=== PATIENT | female | born 1990 | race Caucasian/White ===

== ENCOUNTER 2018-12-14 23:07 | Emergency (ER) | payer MEDICAID ==
[2018-12-14] MEDS ORDERED: Sodium Chloride 0.9% 10 ML Syringe FLUSH PRN (23:42)
[2018-12-14] MEDS ORDERED: LORazepam 2 MG/ML SDV IVPUSH ONE (23:43)
[2018-12-14] MEDS ORDERED: Prochlorperazine 5 MG in Sodium Chloride 0.9% 50 ML IV ONE (23:43)
[2018-12-14] MEDS ORDERED: Sodium Chloride 0.9% 500 ML IV ONE (23:43)
[2018-12-14] MEDS ORDERED: diphenhydrAMINE 50 MG/ML SDV IVPUSH ONE (23:44)
--- NOTE | 2018-12-14 23:47 | EDM.PDOC ---
ED HPI GENERAL MEDICAL PROBLEM - General Stated Complaint: MIGRAINE Time Seen by Provider: 12/14/18 23:25 Source of Information: Reports: Patient History Limitations: Reports: No Limitations - History of Present Illness INITIAL COMMENTS - FREE TEXT/NARRATIVE: 28-year-old female with history of type 1 diabetes mellitus, end-stage renal disease on hemodialysis and migraine headaches who reports she awoke this morning at 8:30 AM with a headache that was left-sided and radiated to back of her head. She initially told me that the headache was a "migraine" but she also tells me that it is not like her normal migraines. She states her normal migraines are usually occipital and she has never woken up with a headache. This headache is more severe than her migraine headaches. She rates the pain as a 9-10/10. She reports that it is sharp and throbbing. She does have photophobia and phonophobia. She has had nausea but no vomiting. She has had no fevers or chills. She has been able to drink liquids. She has had no vision problems. There is no arm or leg weakness. There is no localized area of numbness. There are no other associated signs or symptoms. There are no other modifying factors. Onset: Today (8:30 AM) Duration: Getting Worse (Through the day) Location: Reports: Head Quality: Reports: Sharp, Throbbing Severity: Moderate (to clear) Improves with: Reports: None Worsens with: Reports: Other (Light, sound.) Context: Reports: Other (Awoke with headache) Associated Symptoms: Reports: Headaches, Nausea/Vomiting Treatments ATTIC BLOWER: Reports: NSAIDS, Other Medication(s) (Excedrin Migraine) head Pain Score (Numeric/FACES): 10 - Related Data Allergies Allergy/AdvReac Type Severity Reaction Status Date / Time amoxicillin Allergy Cannot Verified 12/14/18 23:41 Remember fentanyl Allergy Cannot Verified 12/14/18 23:41 Remember ketorolac [From Toradol] Allergy Cannot Verified 12/14/18 23:41 Remember metoclopramide [From Reglan] Allergy Cannot Verified 12/14/18 23:41 Remember Penicillins Allergy Cannot Verified 12/14/18 23:41 Remember tramadol Allergy Cannot Verified 12/14/18 23:41 Remember vancomycin Allergy Cannot Verified 12/14/18 23:41 Remember Past Medical History Cardiovascular History: Reports: Hypertension Genitourinary History: Reports: Dialysis (End-stage renal disease; dialyzes on Tuesday and Tuesday.) Neurological History: Reports: Migraines Endocrine/Metabolic History: Reports: Diabetes, Type I - Past Surgical History HEENT Surgical History: Reports: Myringotomy w Tube(s) (On right ear) GI Surgical History: Reports: Appendectomy, Cholecystectomy Female Surgical History: Reports: Section, Hysterectomy Musculoskeletal Surgical History: Reports: ORIF (Left forearm) Other Surgical History Comment: 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 Removal of fistula from right arm. Social & Family History - Tobacco Use Smoking Status *Q: Current Every Day Smoker - Recreational Drug Use Recreational Drug Use: No - Living Situation & Occupation Living situation: Reports: ED ROS GENERAL - Review of Systems Review Of Systems: See Below Constitutional: Reports: No Symptoms HEENT: Reports: No Symptoms Respiratory: Reports: No Symptoms Cardiovascular: Reports: No Symptoms GI/Abdominal: Reports: Nausea Musculoskeletal: Reports: No Symptoms Skin: Reports: No Symptoms Neurological: Reports: Headache Hematologic/Lymphatic: Reports: No Symptoms Immunologic: Reports: No Symptoms - Physical Exam Exam: See Below Exam Limited By: No Limitations General Appearance: Alert, WD/WN, Mild Distress, Other (She is sitting up, awake , alert and appropriate. She appears nontoxic.) Eye Exam: Bilateral Eye: EOMI, Normal Inspection, PERRL Ears: Normal External Exam Nose: Normal Inspection, Normal Mucosa, No Blood Throat/Mouth: Normal Voice, No Airway Compromise, Other (Dry mucous membranes) Head Exam: Atraumatic, Normocephalic Neck: Normal Inspection, Supple, Non-Tender, Full Range of Motion, Other (No meningismus) Respiratory/Chest: No Respiratory Distress, Lungs Clear, Normal Breath Sounds, No Accessory Muscle Use, Chest Non-Tender Cardiovascular: Normal Peripheral Pulses, Regular Rate, Rhythm, No JVD GI/Abdominal: Normal Bowel Sounds, Soft, Non-Tender, No Mass Neuro Exam (Abbreviated): Alert, Oriented, CN II-XII Intact, Normal Cognition, Normal Gait, No Motor/Sensory Deficits Back Exam: Normal Inspection Extremities: Normal Inspection, Normal Range of Motion, Non-Tender, No Pedal Edema, Normal Capillary Refill Psychiatric: Normal Affect Skin Exam: Warm, Dry, Intact, Normal Color, No Rash Course - Vital Signs Last Recorded V/S: Last Vital Signs Temp 36.9 C 12/14/18 23:07 Pulse 97 12/14/18 23:07 Resp 18 12/14/18 23:07 BP 161/98 H 12/14/18 23:07 Pulse Ox 100 12/14/18 23:07 - Orders/Labs/Meds Orders: Active Orders 24 hr Category Date Time Status Head wo Cont [CT] Stat Exams 12/14/18 23:42 Ordered Sodium Chloride 0.9% [Saline Flush] Med 12/14/18 23:42 Active 10 ml FLUSH ASDIRECTED PRN Peripheral IV Insertion Adult [OM.PC] Routine Oth 12/14/18 23:42 Ordered Medication Orders Sodium Chloride (Saline Flush) 10 ml FLUSH ASDIRECTED PRN PRN Reason: Keep Vein Open Last Admin: 12/15/18 00:27 Dose: 10 ml Labs: Laboratory Tests 12/15/18 12/15/18 12/15/18 Range/Units 02:25 02:25 02:25 WBC 9.3 (4.5-12.0) X10-3/uL RBC 3.70 (3.23-5.20) x10(6)uL Hgb 11.2 L (11.5-15.5) g/dL Hct 34.3 (30.0-51.3) % MCV 92.7 (80-96) fL MCH 30.2 (27.7-33.6) pg MCHC 32.6 (32.2-35.4) g/dL RDW 14.2 (11.5-15.5) % Plt Count 310 (125-369) X10(3)uL MPV 9.6 (7.4-10.4) fL Neut % (Auto) 58.3 (46-82) % Lymph % (Auto) 28.9 (13-37) % [place] % (Auto) 7.3 (4-12) % Eos % (Auto) 4 (1.0-5.0) % Baso % (Auto) 2 (0-2) % Neut # (Auto) 5.4 (1.6-8.3) # Lymph # (Auto) 2.7 (0.6-5.0) # [place] # (Auto) 0.7 (0.0-1.3) # Eos # (Auto) 0.4 (0.0-0.8) # Baso # (Auto) 0.1 (0.0-0.2) # ESR 1 (0-20) mm/hr Sodium 138 (135-145) mmol/L Potassium 5.3 (3.5-5.3) mmol/L Chloride 103 (100-110) mmol/L Carbon Dioxide 26 (21-32) mmol/L BUN 28 H (7-18) mg/dL Creatinine 4.8 H* (0.55-1.02) mg/dL Est Cr Clr Drug Dosing TNP Estimated GFR (MDRD) 11 L (>60) BUN/Creatinine Ratio 5.8 L (9-20) Glucose 192 H (80-116) mg/dL Calcium 8.6 (8.6-10.2) mg/dL Meds: Medications Generic Name Dose Route Start Last Admin Trade Name Freq PRN Reason Stop Dose Admin Sodium Chloride 10 ml 12/14/18 23:42 12/15/18 00:27 Saline Flush FLUSH 10 ml ASDIRECTED PRN Administration Keep Vein Open Discontinued Medications Generic Name Dose Route Start Last Admin Trade Name Freq PRN Reason Stop Dose Admin Diphenhydramine HCl 25 mg 12/14/18 23:44 12/15/18 00:24 Benadryl IVPUSH 12/14/18 23:45 25 mg ONETIME ONE Administration Haloperidol Lactate 2.5 mg 12/15/18 01:19 12/15/18 01:23 Haldol IV 12/15/18 01:20 2.5 mg ONETIME ONE Administration Prochlorperazine Edisylate 5 51 mls @ 150 mls/hr 12/14/18 23:43 12/15/18 00: 25 mg/ Sodium Chloride IV 12/15/18 00:03 150 mls/hr ONETIME ONE Administration Sodium Chloride 500 mls @ 999 mls/hr 12/14/18 23:43 12/15/18 00:27 Normal Saline IV 12/15/18 00:13 999 mls/hr .BOLUS ONE Administration Lorazepam 1 mg 12/14/18 23:43 12/15/18 00:23 Ativan IVPUSH 12/14/18 23:44 1 mg ONETIME ONE Administration - Re-Assessments/Exams Free Text/Narrative Re-Assessment/Exam: 12/15/18 01:20: Patient was sleeping. However, when awakened she reports that her headache is no better. I will give the patient Haldol 2.[address] scan of patient's head has been performed and await results. 12/15/18 04:03: Lab tests are reassuring. She does have an elevated creatinine but this is expected given her end-stage renal failure. Her sedimentation rate was normal. The CT scan of her head was normal as well. The patient was sleeping peacefully when I came to reevaluate her. When awakened she reports she still has a headache but it is improved and she reported that it was an 8/ 10 but she appeared to be quite a bit more comfortable than this. Her blood pressures have been elevated while she has been here but they are in a range where she states that she has been for some time. In any event, I feel that she is stable for discharge.. She should keep her appointment for her dialysis today. She is to follow-up with her primary doctor in regard to her headaches. Her headache appears to be a variant of her migraines. Departure - Departure Time of Disposition: 04:10 Disposition: Home, Self-Care 01 Condition: Good (Improved) Clinical Impression: Headache syndrome, Hypertension, uncontrolled, End stage renal disease - Discharge Information Instructions: Hypertension, [id number], Recurrent Migraine Headache, Easy-to- Read Referrals: Baldev Nina PA-C [Primary Care Provider] - Additional Instructions: Your blood tests were either normal or unchanged from previous. There is no evidence of acute inflammation. CT scan of your head was normal. I am unsure of the cause of her headache but I suspect this may just be a variant of your migraines. You should rest. You should drink plenty of fluids. Keep your appointment for your dialysis today. Follow-up with your primary doctor in regard to your headaches. Back to the emergency department for fever, unrelenting vomiting, increasing headache or any other concerning sign or symptom. - My Orders Last 24 Hours: My Active Orders 12/14/18 23:42 Head wo Cont [CT] Stat Sodium Chloride 0.9% [Saline Flush] 10 ml FLUSH ASDIRECTED PRN Peripheral IV Insertion Adult [OM.PC] Routine - Assessment/Plan Last 24 Hours: My Active Orders 12/14/18 23:42 Head wo Cont [CT] Stat Sodium Chloride 0.9% [Saline Flush] 10 ml FLUSH ASDIRECTED PRN Peripheral IV Insertion Adult [OM.PC] Routine
[2018-12-15] MEDS ORDERED: Haloperidol Lactate 5 MG/ML SDV IV ONE (01:19)
== END 2018-12-15 04:15 | disposition home or self-care (01) ==
LOC: FB.ED 23:07
DX: G44.89 Other headache syndrome (principal); I12.0 Hypertensive chronic kidney disease with stage 5 chronic kidney disease or end stage renal disease; N18.6 End stage renal disease; E10.22 Type 1 diabetes mellitus with diabetic chronic kidney disease; F17.200 Nicotine dependence, unspecified, uncomplicated; Z96.22 Myringotomy tube(s) status; Z90.49 Acquired absence of other specified parts of digestive tract; Z90.710 Acquired absence of both cervix and uterus; Z88.0 Allergy status to penicillin; Z88.1 Allergy status to other antibiotic agents; Z88.5 Allergy status to narcotic agent; Z88.6 Allergy status to analgesic agent; Z88.8 Allergy status to other drugs, medicaments and biological substances; Z99.2 Dependence on renal dialysis
CPT/HCPCS: 36415; 70450; 80048; 85025; 85651; 96365; 96375; 99284; J0780; J1200; J1630; J2060; J7040; J7050

== ENCOUNTER 2018-12-16 21:18 | Emergency (ER) | payer MEDICAID ==
[2018-12-16] MEDS ORDERED: LORazepam 2 MG/ML SDV IVPUSH ONE ×2 (21:47→22:41)
[2018-12-16] MEDS ORDERED: diphenhydrAMINE 50 MG/ML SDV IVPUSH ONE (21:47)
[2018-12-16] MEDS ORDERED: Haloperidol Lactate 5 MG/ML SDV IV ONE (21:47)
--- NOTE | 2018-12-16 21:47 | EDM.PDOC ---
ED HPI GENERAL MEDICAL PROBLEM - General Chief Complaint: Headache Stated Complaint: MIGRAINE Time Seen by Provider: 12/16/18 21:30 Source of Information: Reports: Patient History Limitations: Reports: No Limitations - History of Present Illness INITIAL COMMENTS - FREE TEXT/NARRATIVE: 28-year-old female who was seen by myself on 12/14/2018 for headache. She does have a history of migraine headaches but the headache 12/14/2018 was somewhat different than her previous migraines and that she awoke with this headache and it was frontally located and her migraines tend to be occipitally located and she is never woken up with a migraine. He had a workup which included blood testing which was all negative and reassuring. She had a CT scan of her head which showed no acute abnormality. Her exam was reassuring as well in that she had no meningismus and no fever. She was given accommodation of medications and some IV fluids and her headache markedly improved and she was discharged. She reports that her headache went away and she was feeling well until approximately 3:30 to 4 this morning when she developed a recurrence in her headache as she was driving home from work. The headache again is frontally located and radiates back to her occiput. It is a throbbing and pounding headache that is associated with nausea and some photophobia. She has had vomiting 2. And she has noted that she has some swelling in her ankles and around her abdomen. There is no pain in these areas. She has had no fevers. She has had no neck stiffness. She has not been able to sleep since the headache began this morning. She has taken Excedrin and she called her doctor and he told her that it was okay to take Aleve. She has had no relief of her symptoms with these medications. Her pain is a 10/10 now. There are no other associated signs or symptoms. There are no other modifying factors. 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: Other Medication(s) (Excedrin and Aleve) - Related Data Allergies Allergy/AdvReac Type Severity Reaction Status Date / Time amoxicillin Allergy Cannot Verified 12/14/18 23:41 Remember fentanyl Allergy Cannot Verified 12/14/18 23:41 Remember ketorolac [From Toradol] Allergy Cannot Verified 12/14/18 23:41 Remember metoclopramide [From Reglan] Allergy Cannot Verified 12/14/18 23:41 Remember Penicillins Allergy Cannot Verified 12/14/18 23:41 Remember tramadol Allergy Cannot Verified 12/14/18 23:41 Remember vancomycin Allergy Cannot Verified 12/14/18 23:41 Remember Past Medical History Cardiovascular History: Reports: Heart Murmur, Hypertension Genitourinary History: Reports: Dialysis Neurological History: Reports: Migraines Endocrine/Metabolic History: Reports: Diabetes, Type I - Past Surgical History HEENT Surgical History: Reports: Myringotomy w Tube(s) GI Surgical History: Reports: Appendectomy, Cholecystectomy Female Surgical History: Reports: Section, Hysterectomy Musculoskeletal Surgical History: Reports: ORIF Social & Family History - Tobacco Use Smoking Status *Q: Current Every Day Smoker - Living Situation & Occupation Living situation: Reports: 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) ED ROS GENERAL - Review of Systems Review Of Systems: See Below Constitutional: Reports: No Symptoms HEENT: Reports: No Symptoms Respiratory: Reports: No Symptoms Cardiovascular: Reports: No Symptoms GI/Abdominal: Reports: Nausea, Vomiting : Reports: No Symptoms Musculoskeletal: Reports: Other (Edema in ankles and in abdominal wall.) Skin: Reports: No Symptoms Neurological: Reports: Headache Hematologic/Lymphatic: Reports: No Symptoms Immunologic: Reports: No Symptoms - Physical Exam Exam: See Below Exam Limited By: No Limitations General Appearance: Alert, WD/WN, Moderate Distress (However, patient is awake, alert and appropriate and appears nontoxic at this point) Eye Exam: Bilateral Eye: EOMI, Normal Inspection, PERRL Ears: Normal External Exam Nose: Normal Inspection, Normal Mucosa, No Blood Throat/Mouth: Normal Inspection, Normal Oropharynx, Normal Voice, No Airway Compromise Head Exam: Atraumatic, Normocephalic Neck: Normal Inspection, Supple, Non-Tender, Full Range of Motion Respiratory/Chest: No Respiratory Distress, Lungs Clear, Normal Breath Sounds, No Accessory Muscle Use, Chest Non-Tender Cardiovascular: Normal Peripheral Pulses, Regular Rate, Rhythm, No JVD GI/Abdominal: Normal Bowel Sounds, Soft, Non-Tender, No Mass Neuro Exam (Abbreviated): Alert, Oriented, CN II-XII Intact, Normal Cognition, No Motor/Sensory Deficits Back Exam: Normal Inspection Extremities: Normal Inspection, Normal Range of Motion, Non-Tender, Normal Capillary Refill Skin Exam: Warm, Dry, Intact, Normal Color, No Rash Course - Vital Signs Last Recorded V/S: Last Vital Signs Temp 36.7 C 12/16/18 23:20 Pulse 112 H 12/16/18 23:20 Resp 16 12/16/18 23:20 BP 180/109 H 12/16/18 23:20 Pulse Ox 100 12/16/18 23:20 - Orders/Labs/Meds Orders: Active Orders 24 hr Category Date Time Status Accu Check [Blood Glucose Check, Bedside] [] ONETIME Care 12/16/18 22:53 Active Accu Check [Blood Glucose Check, Bedside] [] ONETIME Care 12/16/18 23:15 Active Blood Glucose Check, Bedside [] ONETIME Care 12/16/18 23:07 Active Sodium Chloride 0.9% [Saline Flush] Med 12/16/18 21:47 Active 10 ml FLUSH ASDIRECTED PRN Peripheral IV Insertion Adult [OM.PC] Routine Oth 12/16/18 21:47 Ordered Medication Orders Sodium Chloride (Saline Flush) 10 ml FLUSH ASDIRECTED PRN PRN Reason: Keep Vein Open Last Admin: 12/16/18 22:25 Dose: 10 ml Admin: 12/16/18 22:16 Dose: 10 ml Admin: 12/16/18 22:13 Dose: 10 ml Labs: Laboratory Tests 12/16/18 12/16/18 Range/Units 22:53 23:05 Glucose 213 H (80-116) mg/dL POC Glucose 35 L* (80-116) mg/dL Meds: Medications Generic Name Dose Route Start Last Admin Trade Name Freq PRN Reason Stop Dose Admin Sodium Chloride 10 ml 12/16/18 21:47 12/16/18 22:25 Saline Flush FLUSH 10 ml ASDIRECTED PRN Administration Keep Vein Open Discontinued Medications Generic Name Dose Route Start Last Admin Trade Name Freq PRN Reason Stop Dose Admin Dextrose/Water 50 ml 12/16/18 22:54 12/16/18 22:55 Dextrose 50% In Water IVPUSH 12/16/18 22:55 50 ml ONETIME ONE Administration Diphenhydramine HCl 50 mg 12/16/18 21:47 12/16/18 22:25 Benadryl IVPUSH 12/16/18 21:48 50 mg ONETIME ONE Administration Haloperidol Lactate 5 mg 12/16/18 21:47 12/16/18 22:16 Haldol IV 12/16/18 21:48 5 mg ONETIME ONE Administration Lorazepam 1 mg 12/16/18 21:47 12/16/18 22:13 Ativan IVPUSH 12/16/18 21:48 1 mg ONETIME ONE Administration Lorazepam 1 mg 12/16/18 22:41 12/16/18 22:45 Ativan IVPUSH 12/16/18 22:42 1 mg ONETIME ONE Administration - Re-Assessments/Exams Free Text/Narrative Re-Assessment/Exam: 12/16/18 22:30: Patient's headache is somewhat improved. She reports is down to a 7/10. She has however feeling somewhat more anxious and like something is crawling under her skin. This may well be an akathetic response to the increased dose of Benadryl (I had only given her 25 mg the last time that she was here). I will give her additional Ativan IV. 12/16/18 22:55: The patient had reported that she felt like her blood sugar was a little low. And when we checked her blood sugar was 35. She was given 1 amp of D50 IV and was given toast with jelly to eat. She was awake and alert with this. 12/16/18 23:25: Patient's repeat blood sugar was 159. She reports her headache is down to a 5/10. She is still somewhat slow's but reports that seems to be improving as well. She is ready for discharge and was discharge. I have asked them to check her blood sugar every hour for the next 2-3 hours to ensure that it is stable or rising and she should eat a sugar rich snack when she gets home. Departure - Departure Time of Disposition: 23:25 Disposition: Home, Self-Care 01 Condition: Good (Improved) Clinical Impression: Hypoglycemic episode in patient with diabetes mellitus, Acute medication- induced akathisia Migraine headache Qualifiers: Migraine type: unspecified Status migrainosus presence: without status migrainosus Intractability: not intractable Qualified Code(s): G43.909 - Migraine, unspecified, not intractable, without status migrainosus - Discharge Information Referrals: PCP,None [Primary Care Provider] - Forms: ED Department Discharge Additional Instructions: Increase your fluid intake judiciously. Check your blood sugar every 1 hour 2- 3 hours to ensure that your blood sugars stable or doing somewhat. Eat a good snack when you get home with sugar or sugar containing food. Follow-up with your primary doctor on Tuesday. Back to the emergency department for fever, unrelenting vomiting or any other concerning sign or symptom. - My Orders Last 24 Hours: My Active Orders 12/16/18 21:47 Sodium Chloride 0.9% [Saline Flush] 10 ml FLUSH ASDIRECTED PRN Peripheral IV Insertion Adult [OM.PC] Routine 12/16/18 22:53 Accu Check [Blood Glucose Check, Bedside] [RC] ONETIME 12/16/18 23:07 Blood Glucose Check, Bedside [RC] ONETIME 12/16/18 23:15 Accu Check [Blood Glucose Check, Bedside] [RC] ONETIME - Assessment/Plan Last 24 Hours: My Active Orders 12/16/18 21:47 Sodium Chloride 0.9% [Saline Flush] 10 ml FLUSH ASDIRECTED PRN Peripheral IV Insertion Adult [OM.PC] Routine 12/16/18 22:53 Accu Check [Blood Glucose Check, Bedside] [RC] ONETIME 12/16/18 23:07 Blood Glucose Check, Bedside [RC] ONETIME 12/16/18 23:15 Accu Check [Blood Glucose Check, Bedside] [RC] ONETIME
[2018-12-16] MEDS: Sodium Chloride 0.9% 10 ML Syringe FLUSH PRN ×5 (22:13→22:55)
[2018-12-16] MEDS ORDERED: 50% Dextrose in Water 50 ML Syringe IVPUSH ONE (22:54)
== END 2018-12-16 23:30 | disposition home or self-care (01) ==
LOC: FB.ED 21:18
DX: G43.909 Migraine, unspecified, not intractable, without status migrainosus (principal); G25.71 Drug induced akathisia; E10.649 Type 1 diabetes mellitus with hypoglycemia without coma; F17.200 Nicotine dependence, unspecified, uncomplicated; Z88.1 Allergy status to other antibiotic agents; Z88.0 Allergy status to penicillin; Z88.5 Allergy status to narcotic agent; Z88.8 Allergy status to other drugs, medicaments and biological substances; Z90.49 Acquired absence of other specified parts of digestive tract; Z90.710 Acquired absence of both cervix and uterus
CPT/HCPCS: 36415; 82947; 82962; 96374; 96375; 96376; 99284; A4216; J1200; J1630; J2060

== ENCOUNTER 2018-12-22 21:27 | Emergency (ER) | payer MEDICAID ==
[2018-12-22] MEDS ORDERED: LORazepam 2 MG/ML SDV IVPUSH ONE (23:12)
[2018-12-22] MEDS ORDERED: diphenhydrAMINE 50 MG/ML SDV IVPUSH ONE (23:12)
--- NOTE | 2018-12-22 23:14 | EDM.PDOC ---
ED HPI GENERAL MEDICAL PROBLEM - General Chief Complaint: Headache Stated Complaint: MIGRAINE Time Seen by Provider: 12/22/18 23:15 Source of Information: Reports: Patient History Limitations: Reports: No Limitations - History of Present Illness INITIAL COMMENTS - FREE TEXT/NARRATIVE: patient presents with concern for migraine headache which has been going on since yesterday afternoon. She has had trouble with migraines for a long time, but seemed to worsen she started dialysis. He tried taking Excedrin Migraine at home, lying down for a nap and also having some caffeine. None of these seemed to help. Has had mild nausea, vomited once yesterday morning but none today. Migraines are like her typical migraines, across the front of her head and was slight blurred vision in her right eye. No overall numbness, weakness or tingling and no change in her gait. She denies any fever, chills or sweats and no neck pain or difficulty moving her neck. No ringing in her ears. She is blind in her left eye, and has decreased vision on the right. Past medical history significant for diabetes type 1 since , complicated by end-stage renal disease on dialysis as of September of this year. She reports her last A1c to be 9, and she dialyzes on Tuesday and Tuesday but did not dialyze today because of an emergency at the facility. She will go to dialysis tomorrow morning. Her headaches are often worse after dialysis. She is not on any controller medications at this time. Bilateral Frontal Headache Pain Score (Numeric/FACES): 9 - Related Data Allergies Allergy/AdvReac Type Severity Reaction Status Date / Time amoxicillin Allergy Cannot Verified 12/16/18 23:51 Remember azithromycin Allergy Cannot Verified 12/16/18 23:51 Remember fentanyl Allergy Cannot Verified 12/16/18 23:51 Remember ketorolac [From Toradol] Allergy Cannot Verified 12/16/18 23:51 Remember latex Allergy Cannot Verified 12/16/18 23:51 Remember metoclopramide [From Reglan] Allergy Cannot Verified 12/16/18 23:51 Remember Penicillins Allergy Cannot Verified 12/16/18 23:51 Remember Sulfa (Sulfonamide Allergy Cannot Verified 12/16/18 23:51 Antibiotics) Remember tramadol Allergy Cannot Verified 12/16/18 23:51 Remember vancomycin Allergy Cannot Verified 12/16/18 23:51 Remember Home Meds: Home Meds .Bp Pills X2 1 dose PO DAILY 12/16/18 [History] Insulin Aspart [NovoLOG] 1 dose SQ ASDIRECTED 12/16/18 [History] Insulin Glarg,Human.Rec.Analog [Lantus Solostar] 1 dose SQ ASDIRECTED 12/16/18 [ History] Past Medical History HEENT History: Reports: None Cardiovascular History: Reports: Heart Murmur, Hypertension Gastrointestinal History: Reports: None Genitourinary History: Reports: Dialysis HOSPICE/HOME HEALTH AIDE History: Reports: : 3 Para: 3 Other HOSPICE/HOME HEALTH AIDE History: Neurological History: Reports: Migraines Endocrine/Metabolic History: Reports: Diabetes, Type I - Past Surgical History HEENT Surgical History: Reports: Myringotomy w Tube(s) Cardiovascular Surgical History: Reports: None GI Surgical History: Reports: Appendectomy, Cholecystectomy Female Surgical History: Reports: Section, Hysterectomy Musculoskeletal Surgical History: Reports: ORIF Social & Family History - Family History Family Medical History: Noncontributory - Tobacco Use Smoking Status *Q: Current Every Day Smoker Years of Tobacco use: 9 Packs/Tins Daily: 0.5 Used Tobacco, but Quit: No Second Hand Smoke Exposure: No - Caffeine Use Caffeine Use: Reports: None - Alcohol Use Alcohol Use History: No - Recreational Drug Use Recreational Drug Use: No - Living Situation & Occupation Living situation: Reports: 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 ED EXAM, GENERAL - Physical Exam Exam: See Below Free Text/Narrative:: general: Alert, pleasant and is not here to be any acute distress. Pupils are equal and reactive, facial muscles are symmetric and uvula is midline. She has equal strength in the upper and lower extremities bilaterally and no gross sensation all deficits. Gait is normal. Neck is supple and freely movable without any pain or tenderness. Heart is regular rate and rhythm, lungs are clear throughout with no wheezes or crackles. Abdomen soft nontender. Peripheral pulses +2 and she has no lower extremity edema. No obvious skin wounds or lesions Course - Vital Signs Text/Narrative:: migraine headaches consistent with prior presentations for her, no neural deficits. She states that the cocktail she was given the very first time she was in the emergency room worked well, not so much the second time. She is currently awaiting a referral to [facility] for nephrology consult down there. reviewed notes, previous migraine cocktail included IV Ativan 1 mg, Benadryl 25 mg, Compazine, and Haldol 2.8. The second time she was seen here she was given double dose of these medications and had some bad side effects from it. Given her chills and sweats over the last couple of days. Get labs to rule out other infection in a major electrolyte abnormalities because her dialysis Pushed back 1 day. She is hypertensive but I would expect this given that she is on daily on dialysis and reports to be in some pain from her headache. Last Recorded V/S: Last Vital Signs Temp 36.9 C 12/23/18 00:07 Pulse 92 12/23/18 00:07 Resp 16 12/23/18 00:07 BP 174/113 H 12/23/18 00:07 Pulse Ox 98 12/23/18 00:07 - Orders/Labs/Meds Orders: Active Orders 24 hr Category Date Time Status Sodium Chloride 0.9% [Saline Flush] Med 12/22/18 23:20 Active 10 ml FLUSH ASDIRECTED PRN Medication Orders Sodium Chloride (Saline Flush) 10 ml FLUSH ASDIRECTED PRN PRN Reason: IV Use Last Admin: 12/23/18 00:01 Dose: 10 ml Admin: 12/22/18 23:25 Dose: 10 ml Labs: Laboratory Tests 12/22/18 12/22/18 12/22/18 Range/Units 22:38 22:38 22:38 WBC 11.1 (4.5-12.0) X10-3/uL RBC 4.08 (3.23-5.20) x10(6)uL Hgb 12.5 (11.5-15.5) g/dL Hct 37.5 (30.0-51.3) % MCV 91.9 (80-96) fL MCH 30.5 (27.7-33.6) pg MCHC 33.2 (32.2-35.4) g/dL RDW 14.7 (11.5-15.5) % Plt Count 342 (125-369) X10(3)uL MPV 8.9 (7.4-10.4) fL Neut % (Auto) 68.5 (46-82) % Lymph % (Auto) 20.8 (13-37) % Harrison % (Auto) 6.7 (4-12) % Eos % (Auto) 4 (1.0-5.0) % Baso % (Auto) 1 (0-2) % Neut # (Auto) 7.6 (1.6-8.3) # Lymph # (Auto) 2.3 (0.6-5.0) # Harrison # (Auto) 0.7 (0.0-1.3) # Eos # (Auto) 0.4 (0.0-0.8) # Baso # (Auto) 0.1 (0.0-0.2) # Sodium 142 (135-145) mmol/L Potassium 4.1 D (3.5-5.3) mmol/L Chloride 104 (100-110) mmol/L Carbon Dioxide 24 (21-32) mmol/L BUN 55 H D (7-18) mg/dL Creatinine 6.4 H* (0.55-1.02) mg/dL Est Cr Clr Drug Dosing 9.54 mL/min Estimated GFR (MDRD) 8 L (>60) BUN/Creatinine Ratio 8.6 L (9-20) Glucose 168 H (80-116) mg/dL Calcium 9.1 (8.6-10.2) mg/dL C-Reactive Protein 0.5 (0.5-0.9) mg/dL Meds: Medications Generic Name Dose Route Start Last Admin Trade Name Freq PRN Reason Stop Dose Admin Sodium Chloride 10 ml 12/22/18 23:20 12/23/18 00:01 Saline Flush FLUSH 10 ml ASDIRECTED PRN Administration IV Use Discontinued Medications Generic Name Dose Route Start Last Admin Trade Name Freq PRN Reason Stop Dose Admin Diphenhydramine HCl 25 mg 12/22/18 23:12 12/22/18 23:31 Benadryl IVPUSH 12/22/18 23:13 25 mg ONETIME ONE Administration Prochlorperazine Edisylate 5 51 mls @ 150 mls/hr 12/22/18 23:15 12/22/18 23: 32 mg/ Sodium Chloride IV 12/22/18 23:35 150 mls/hr ONETIME ONE Administration Lorazepam 0.5 mg 12/22/18 23:12 12/22/18 23:31 Ativan IVPUSH 12/22/18 23:13 0.5 mg ONETIME ONE Administration - Re-Assessments/Exams Free Text/Narrative Re-Assessment/Exam: headache improving with migraine cocktail, labs returned normal. Discussed with patient management strategies for home and also strongly recommend that she see a neurologist as she will likely need a controller medication going forward given that she is having headaches weekly or more, usually following dialysis. I suspect the fluid shifts related to dialysis or some are this. She remained hypertensive, but states that this is a normal blood pressure for her prior to dialysis. Of note, her weight was significantly up at her dialysis on Tuesday and she did not have a full run, so this is likely also contributing. She is agreeable to discharge to home at this time and reports that her headache is improved given 1mg Ativan, 25mg Benadryl, and 5mg compazine, all IV. Given her overall risks and psychosocial situation would recommend care going forward regarding controlled substances in the ER. Departure - Departure Time of Disposition: 00:01 Disposition: Home, Self-Care 01 Condition: Good Clinical Impression: Migraine - Discharge Information *PRESCRIPTION DRUG MONITORING PROGRAM REVIEWED*: Not Applicable *COPY OF PRESCRIPTION DRUG MONITORING REPORT IN PATIENT RACHAEL: Not Applicable Instructions: Recurrent Migraine Headache Referrals: Baldev Nina PA-C [Primary Care Provider] - Forms: ED Department Discharge Additional Instructions: migraine at home: excedrine can try: zofran, benadryl 25mg, drinking some, lie down in dark room visualizing something relaxing or focusing on getting all the different muscles in your face to relax is sometimes also helpful in this situation. Think about every individual part of your body getting very heavy on the bed recommend followup with PCP and/or neurology as this is likely to be an ongoing problem - My Orders Last 24 Hours: My Active Orders 12/22/18 23:20 Sodium Chloride 0.9% [Saline Flush] 10 ml FLUSH ASDIRECTED PRN - Assessment/Plan Last 24 Hours: My Active Orders 12/22/18 23:20 Sodium Chloride 0.9% [Saline Flush] 10 ml FLUSH ASDIRECTED PRN
[2018-12-22] MEDS ORDERED: Prochlorperazine 5 MG in Sodium Chloride 0.9% 50 ML IV ONE (23:15)
[2018-12-22] MEDS: Sodium Chloride 0.9% 10 ML Syringe FLUSH PRN (23:25)
[2018-12-23] MEDS: Sodium Chloride 0.9% 10 ML Syringe FLUSH PRN (00:01)
== END 2018-12-23 00:09 | disposition home or self-care (01) ==
LOC: FB.ED 21:27
DX: G43.909 Migraine, unspecified, not intractable, without status migrainosus (principal); I12.0 Hypertensive chronic kidney disease with stage 5 chronic kidney disease or end stage renal disease; N18.6 End stage renal disease; E10.22 Type 1 diabetes mellitus with diabetic chronic kidney disease; F17.210 Nicotine dependence, cigarettes, uncomplicated; Z91.040 Latex allergy status; Z88.0 Allergy status to penicillin; Z88.2 Allergy status to sulfonamides; Z88.8 Allergy status to other drugs, medicaments and biological substances; Z88.1 Allergy status to other antibiotic agents; Z88.5 Allergy status to narcotic agent; Z88.6 Allergy status to analgesic agent; Z96.22 Myringotomy tube(s) status; Z90.49 Acquired absence of other specified parts of digestive tract; Z90.710 Acquired absence of both cervix and uterus
CPT/HCPCS: 36415; 80048; 85025; 86140; 96365; 96375; 99283; J0780; J1200; J2060; J7050

== ENCOUNTER 2019-01-07 20:18 | Emergency (ER) | payer MEDICAID ==
[2019-01-07] MEDS ORDERED: Metoclopramide 10 MG/2 ML SDV IVPUSH ONE (21:44)
[2019-01-07] MEDS ORDERED: diphenhydrAMINE 50 MG/ML SDV IVPUSH ONE (21:44)
[2019-01-07] MEDS ORDERED: HYDROmorphone 2 MG/ML SDV IVPUSH ONE (21:46)
--- NOTE | 2019-01-07 22:36 | EDM.PDOC ---
ED HPI GENERAL MEDICAL PROBLEM - General Stated Complaint: STOMACH PAIN Time Seen by Provider: 01/07/19 20:18 Source of Information: Reports: Patient, Family History Limitations: Reports: No Limitations - History of Present Illness INITIAL COMMENTS - FREE TEXT/NARRATIVE: 28 y.o.w.f with multiple medical issues, including a H/o ESRD, Chronic intermittent Migraine Headache, came with her SO to the ED due to bilat Temp headache, her "typical migraine" including nausea and photophobia. No the worst headache. No trauma. No other acute med issues. BP 169/98 Pulse Pulse 95 RR 18 Pulse ox 100% on RA Temp 36.6 Onset Date: 01/07/19 Onset Time: 14:00 Duration: Hour(s):, Getting Worse, Intermittent Location: Reports: Head Quality: Reports: Dull, Same as Previous Episode Severity: Moderate Improves with: Reports: Medication Worsens with: Reports: Other (?) Context: Reports: Other Associated Symptoms: Reports: Headaches, Other (nausea) R sided migraine, lower abdominal pain Pain Score (Numeric/FACES): 10 - Related Data Allergies Allergy/AdvReac Type Severity Reaction Status Date / Time amoxicillin Allergy Cannot Verified 12/16/18 23:51 Remember azithromycin Allergy Cannot Verified 12/16/18 23:51 Remember fentanyl Allergy Cannot Verified 12/16/18 23:51 Remember ketorolac [From Toradol] Allergy Cannot Verified 12/16/18 23:51 Remember latex Allergy Cannot Verified 12/16/18 23:51 Remember metoclopramide [From Reglan] Allergy Cannot Verified 12/16/18 23:51 Remember Penicillins Allergy Cannot Verified 12/16/18 23:51 Remember Sulfa (Sulfonamide Allergy Cannot Verified 12/16/18 23:51 Antibiotics) Remember tramadol Allergy Cannot Verified 12/16/18 23:51 Remember vancomycin Allergy Cannot Verified 12/16/18 23:51 Remember Home Meds: Home Meds .Bp Pills X2 1 dose PO DAILY 12/16/18 [History] Insulin Aspart [NovoLOG] 1 dose SQ ASDIRECTED 12/16/18 [History] Insulin Glarg,Human.Rec.Analog [Lantus Solostar] 1 dose SQ ASDIRECTED 12/16/18 [ History] Past Medical History HEENT History: Reports: None Cardiovascular History: Reports: Heart Murmur, Hypertension Gastrointestinal History: Reports: None Genitourinary History: Reports: Dialysis PROGRAM DIRECTOR AIR TALENT 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 PROGRAM DIRECTOR AIR TALENT History: Neurological History: Reports: Migraines Endocrine/Metabolic History: Reports: Diabetes, Type I - Past Surgical History HEENT Surgical History: Reports: Myringotomy w Tube(s) Cardiovascular Surgical History: Reports: None GI Surgical History: Reports: Appendectomy, Cholecystectomy Female Surgical History: Reports: Section, Hysterectomy Musculoskeletal Surgical History: Reports: ORIF Social & Family History - Family History Family Medical History: Noncontributory - Caffeine Use Caffeine Use: Reports: None - Living Situation & Occupation Living situation: Reports: 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) ED ROS GENERAL - Review of Systems Review Of Systems: See Below Constitutional: Reports: No Symptoms HEENT: Reports: No Symptoms Respiratory: Reports: No Symptoms Cardiovascular: Reports: No Symptoms Endocrine: Reports: No Symptoms GI/Abdominal: Reports: No Symptoms : Reports: No Symptoms Musculoskeletal: Reports: No Symptoms Skin: Reports: No Symptoms Neurological: Reports: Headache Psychiatric: Reports: No Symptoms Hematologic/Lymphatic: Reports: No Symptoms Immunologic: Reports: No Symptoms - Physical Exam Exam: See Below Exam Limited By: No Limitations General Appearance: Alert, Moderate Distress, Thin Eye Exam: Bilateral Eye: Normal Inspection Ears: Normal External Exam Nose: Normal Inspection Throat/Mouth: Normal Inspection, Normal Lips, Normal Voice, No Airway Compromise (piercing of tongue) Head Exam: Atraumatic, Normocephalic Neck: Normal Inspection, Supple, Non-Tender, Full Range of Motion Respiratory/Chest: No Respiratory Distress, Lungs Clear, Normal Breath Sounds, Chest Non-Tender Cardiovascular: Normal Peripheral Pulses, Regular Rate, Rhythm, No Edema GI/Abdominal: Normal Bowel Sounds, Soft, Non-Tender, No Organomegaly, Pelvis Stable (Female) Exam: Deferred Rectal (Female) Exam: Normal Exam Neuro Exam (Abbreviated): Alert, Oriented, CN II-XII Intact, Normal Cognition, Normal Gait Back Exam: Normal Inspection, Full Range of Motion Extremities: Normal Inspection, Normal Range of Motion, Non-Tender Psychiatric: Normal Affect, Normal Mood, Anxious Skin Exam: Warm, Dry, Intact, Normal Color, No Rash, Other (tongue piercing) Course - Vital Signs Text/Narrative:: 28 y.o.w.f with multiple medical issues, including a H/o ESRD, Chronic intermittent Migraine Headache, came with her SO to the ED due to bilat Temp headache, her "typical migraine" including nausea and photophobia. No the worst headache. No trauma. No other acute med issues. BP 169/98 Pulse Pulse 95 RR 18 Pulse ox 100% on RA Temp 36.6 PE: Thin 28 h/o w f with Migraine headache Labs/imaging: Not indicated Impression: Migraine headache Tx: Reglan, Benadryl and Dilaudid Reexam: H/A nausea subsided 100% Plan: D/C with instructions Last Recorded V/S: Last Vital Signs Temp 37.1 C 01/07/19 21:25 Pulse 85 01/07/19 22:30 Resp 18 01/07/19 22:30 BP 158/85 H 01/07/19 22:30 Pulse Ox 100 01/07/19 22:30 - Orders/Labs/Meds Meds: Medications Discontinued Medications Generic Name Dose Route Start Last Admin Trade Name Amilcarq PRN Reason Stop Dose Admin Diphenhydramine HCl 12.5 mg 01/07/19 21:44 01/07/19 22:09 Benadryl IVPUSH 01/07/19 21:45 12.5 mg ONETIME ONE Administration Hydromorphone HCl 0.25 mg 01/07/19 21:46 01/07/19 22:07 Dilaudid IVPUSH 01/07/19 21:47 0.25 mg ONETIME ONE Administration Metoclopramide HCl 10 mg 01/07/19 21:44 01/07/19 22:11 Reglan IVPUSH 01/07/19 21:45 10 mg ONETIME ONE Administration Departure - Departure Time of Disposition: 22:35 Disposition: Home, Self-Care 01 Condition: Good Clinical Impression: Migraine Qualifiers: Migraine type: unspecified Status migrainosus presence: without status migrainosus Intractability: not intractable Qualified Code(s): G43.909 - Migraine, unspecified, not intractable, without status migrainosus - Discharge Information Instructions: Migraine Headache, [id number], Abdominal Pain, Adult, Easy-to- Read Referrals: Baldev Nina PA-C [Primary Care Provider] - Forms: ED Department Discharge Additional Instructions: Please follow up with your regular MD as needed, come back if your symptoms get worse acutely.
== END 2019-01-07 22:59 | disposition home or self-care (01) ==
LOC: FB.ED 20:18
DX: G43.909 Migraine, unspecified, not intractable, without status migrainosus (principal); I12.0 Hypertensive chronic kidney disease with stage 5 chronic kidney disease or end stage renal disease; N18.6 End stage renal disease; E10.22 Type 1 diabetes mellitus with diabetic chronic kidney disease; Z88.1 Allergy status to other antibiotic agents; Z91.040 Latex allergy status; Z88.5 Allergy status to narcotic agent; Z88.6 Allergy status to analgesic agent; Z88.0 Allergy status to penicillin; Z96.22 Myringotomy tube(s) status; Z90.49 Acquired absence of other specified parts of digestive tract; Z90.710 Acquired absence of both cervix and uterus
CPT/HCPCS: 96374; 96375; 99284; J1170; J1200; J2765

== ENCOUNTER 2019-01-12 22:35 | Emergency (ER) | payer MEDICAID ==
[2019-01-12] MEDS: Metoclopramide 10 MG/2 ML SDV IVPUSH ONE ×2 (23:20→23:32)
[2019-01-12] MEDS: diphenhydrAMINE 50 MG/ML SDV IVPUSH ONE ×2 (23:20→23:32)
[2019-01-12] MEDS ORDERED: diphenhydrAMINE 50 MG/ML SDV IM ONE (23:23)
[2019-01-12] MEDS ORDERED: Metoclopramide 10 MG/2 ML SDV IM ONE (23:24)
--- NOTE | 2019-01-12 23:52 | EDM.PDOC ---
ED HPI GENERAL MEDICAL PROBLEM - General Chief Complaint: Headache Stated Complaint: MIGRAINE Time Seen by Provider: 01/12/19 22:47 Source of Information: Reports: Patient History Limitations: Reports: No Limitations - History of Present Illness INITIAL COMMENTS - FREE TEXT/NARRATIVE: c/o FLORES with pt DM1, gets dialysis for 4h qMon and Fri, had dialysis form 8a to noon, had FLORES at dialysis, give Excedrin Migraine at noon at dialysis pt given Dilaudid/Benadryl/Reglan for last visit with FLORES, given Ativan/Benadryl with previous visit, however pt said those meds "made my skin crawl" head hurts all over, walked into ED with limitation or pain requested IM meds, felt much better after Benadryl 50 mg IM and Reglan 10 mg IM and asked to go home shortly after meds given some nausea Treatments BUTCHER'S ASSISTANT: Reports: NSAIDS - Related Data Allergies Allergy/AdvReac Type Severity Reaction Status Date / Time amoxicillin Allergy Cannot Verified 01/12/19 22:47 Remember azithromycin Allergy Cannot Verified 01/12/19 22:47 Remember fentanyl Allergy Cannot Verified 01/12/19 22:47 Remember ketorolac [From Toradol] Allergy Cannot Verified 01/12/19 22:47 Remember latex Allergy Cannot Verified 01/12/19 22:47 Remember metoclopramide [From Reglan] Allergy Cannot Verified 01/12/19 22:47 Remember Penicillins Allergy Cannot Verified 01/12/19 22:47 Remember Sulfa (Sulfonamide Allergy Cannot Verified 01/12/19 22:47 Antibiotics) Remember tramadol Allergy Cannot Verified 01/12/19 22:47 Remember vancomycin Allergy Cannot Verified 01/12/19 22:47 Remember Home Meds: Home Meds .Bp Pills X2 1 dose PO DAILY 12/16/18 [History] Insulin Aspart [NovoLOG] 1 dose SQ ASDIRECTED 12/16/18 [History] Insulin Glarg,Human.Rec.Analog [Lantus Solostar] 1 dose SQ ASDIRECTED 12/16/18 [ History] Past Medical History HEENT History: Reports: None Other HEENT History: legally blind L eye Cardiovascular History: Reports: Heart Murmur, Hypertension Gastrointestinal History: Reports: None Genitourinary History: Reports: Dialysis CASTER INVESTMENT CASTING 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 CASTER INVESTMENT CASTING History: Musculoskeletal History: Reports: Fracture Other Musculoskeletal History: hx fx L forearm Neurological History: Reports: Migraines Endocrine/Metabolic History: Reports: Diabetes, Type I Oncologic (Cancer) History: Reports: Uterine, Other (See Below) Other Oncologic History: oral CA, teeth removed - Past Surgical History HEENT Surgical History: Reports: Myringotomy w Tube(s) Cardiovascular Surgical History: Reports: None GI Surgical History: Reports: Appendectomy, Cholecystectomy Female Surgical History: Reports: Section, Hysterectomy Musculoskeletal Surgical History: Reports: ORIF Social & Family History - Family History Family Medical History: Noncontributory - Tobacco Use Smoking Status *Q: Current Every Day Smoker Years of Tobacco use: 10 Packs/Tins Daily: 0.5 Used Tobacco, but Quit: No Second Hand Smoke Exposure: Yes - Caffeine Use Caffeine Use: Reports: None - Recreational Drug Use Recreational Drug Use: No - Living Situation & Occupation Living situation: Reports: 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) ED ROS GENERAL - Review of Systems Review Of Systems: See Below Constitutional: Reports: No Symptoms HEENT: Reports: No Symptoms Respiratory: Reports: No Symptoms Cardiovascular: Reports: No Symptoms Endocrine: Reports: No Symptoms GI/Abdominal: Reports: Nausea : Reports: No Symptoms Musculoskeletal: Reports: No Symptoms Skin: Reports: No Symptoms Neurological: Reports: Headache Psychiatric: Reports: No Symptoms Hematologic/Lymphatic: Reports: No Symptoms Immunologic: Reports: No Symptoms ED EXAM, NEURO - Physical Exam Exam: See Below Exam Limited By: No Limitations General Appearance: Alert, WD/WN, No Apparent Distress Nose: Normal Inspection, Normal Mucosa, No Blood Throat/Mouth: Normal Inspection Head Exam: Atraumatic, Normocephalic Neck: Normal Inspection, Supple, Non-Tender, Full Range of Motion. No: Lymphadenopathy (R), Lymphadenopathy (L) Respiratory/Chest: No Respiratory Distress, Lungs Clear, Normal Breath Sounds, No Accessory Muscle Use Cardiovascular: Regular Rate, Rhythm, No Edema, No JVD, No Murmur GI/Abdominal: Soft, Non-Tender, Rebound Neurological: Alert, Normal Mood/Affect, Normal Dorsiflexion, CN II-XII Intact, Normal Gait, No Motor/Sensory Deficits, Oriented x 3 Back Exam: Normal Inspection, Full Range of Motion, NT Extremities: Normal Inspection, Normal Range of Motion, Non-Tender, No Pedal Edema, Normal Capillary Refill Psychiatric: Normal Affect, Normal Mood Skin Exam: Warm, Dry, Intact, Normal Color, No Rash Course - Vital Signs Last Recorded V/S: Last Vital Signs Temp 37.1 C 01/12/19 22:45 Pulse 93 01/12/19 22:45 Resp 18 01/12/19 22:45 BP 173/87 H 01/12/19 22:45 Pulse Ox 99 01/12/19 22:45 - Orders/Labs/Meds Meds: Medications Discontinued Medications Generic Name Dose Route Start Last Admin Trade Name Dodie PRN Reason Stop Dose Admin Diphenhydramine HCl 50 mg 01/12/19 22:57 01/12/19 23:32 Benadryl IVPUSH 01/12/19 22:58 Not Given ONETIME ONE Diphenhydramine HCl 50 mg 01/12/19 23:23 01/12/19 23:25 Benadryl IM 01/12/19 23:24 50 mg ONETIME ONE Administration Metoclopramide HCl 10 mg 01/12/19 22:57 01/12/19 23:32 Reglan IVPUSH 01/12/19 22:58 Not Given ONETIME ONE Metoclopramide HCl 10 mg 01/12/19 23:24 01/12/19 23:25 Reglan IM 01/12/19 23:25 10 mg ONETIME ONE Administration - Re-Assessments/Exams Free Text/Narrative Re-Assessment/Exam: 01/12/19 23:54 suspect tension FLORES, tolerated meds well Departure - Departure Time of Disposition: 23:47 Disposition: Home, Self-Care 01 Condition: Good Clinical Impression: Headache - Discharge Information *PRESCRIPTION DRUG MONITORING PROGRAM REVIEWED*: Not Applicable *COPY OF PRESCRIPTION DRUG MONITORING REPORT IN PATIENT RACHAEL: Not Applicable Instructions: Migraine Headache Referrals: PCP,None [Primary Care Provider] - Additional Instructions: Rest when you get home. Take acetaminophen 500 mg 2 tabs 4 times a day as needed. Continue current medications.
== END 2019-01-12 23:52 | disposition home or self-care (01) ==
LOC: FB.ED 22:35
DX: R51 Headache (principal); F17.210 Nicotine dependence, cigarettes, uncomplicated; I10 Essential (primary) hypertension; E10.9 Type 1 diabetes mellitus without complications; Z79.899 Other long term (current) drug therapy; Z88.1 Allergy status to other antibiotic agents; Z88.0 Allergy status to penicillin; Z88.2 Allergy status to sulfonamides; Z88.8 Allergy status to other drugs, medicaments and biological substances
CPT/HCPCS: 96372; 99283; J1200; J2765

== ENCOUNTER 2019-01-19 21:27 | Emergency (ER) | payer MEDICAID ==
[2019-01-19] MEDS ORDERED: SUMAtriptan 6 MG/0.5 ML SDV SUBCUT ONE (21:59)
[2019-01-19] MEDS ORDERED: hydrOXYzine HCl 50 MG/ML SDV IM ONE (21:59)
[2019-01-19] MEDS ORDERED: cloNIDine 0.1 MG Tab PO ONE (22:05)
[2019-01-19] MEDS ORDERED: HYDROmorphone 2 MG/ML SDV IM ONE (22:08)
--- NOTE | 2019-01-19 22:11 | EDM.PDOC ---
ED HPI GENERAL MEDICAL PROBLEM - General Stated Complaint: MIGRAINE Time Seen by Provider: 01/19/19 22:01 Source of Information: Reports: Patient - History of Present Illness INITIAL COMMENTS - FREE TEXT/NARRATIVE: 28 yo female with FLORES. This Headache is global,moderate,started this morning after dialysis. She has been getting them after dialysis. Has not tried anything for it,. Has been in the ED several times for it. No fever. No vomiting. Also endorses R) ear bleeding without pain. Luis has ESRD,Type 1 DM ,and Uncontrolled HTN.She is a smoker of 1/2 PPD Treatments RN FIELD CASE MANAGER: Reports: Other Medication(s) migraine Pain Score (Numeric/FACES): 10 - Related Data Allergies Allergy/AdvReac Type Severity Reaction Status Date / Time amoxicillin Allergy Difficulty Verified 01/19/19 22:12 Breathing azithromycin Allergy Rash Verified 01/19/19 22:12 fentanyl Allergy Hives Verified 01/19/19 22:12 ketorolac [From Toradol] Allergy Hives Verified 01/19/19 22:12 latex Allergy Rash Verified 01/19/19 22:12 metoclopramide [From Reglan] Allergy Hives Verified 01/19/19 22:12 Penicillins Allergy Difficulty Verified 01/19/19 22:12 Breathing Sulfa (Sulfonamide Allergy Hives Verified 01/19/19 22:12 Antibiotics) vancomycin Allergy Other Verified 01/19/19 22:12 Home Meds: Home Meds Insulin Aspart [NovoLOG] 1 dose SQ ASDIRECTED 12/16/18 [History] Insulin Glarg,Human.Rec.Analog [Lantus Solostar] 1 dose SQ ASDIRECTED 12/16/18 [ History] Atenolol 100 mg PO DAILY 01/19/19 [History] amLODIPine [Norvasc] 10 mg PO DAILY 01/19/19 [History] Past Medical History HEENT History: Reports: None Other HEENT History: legally blind L eye Cardiovascular History: Reports: Heart Murmur, Hypertension Gastrointestinal History: Reports: None Genitourinary History: Reports: Dialysis HOME HEALTH ASSISTANT 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 HOME HEALTH ASSISTANT History: Musculoskeletal History: Reports: Fracture Other Musculoskeletal History: hx fx L forearm Neurological History: Reports: Migraines Endocrine/Metabolic History: Reports: Diabetes, Type I Oncologic (Cancer) History: Reports: Uterine, Other (See Below) Other Oncologic History: oral CA, teeth removed - Past Surgical History HEENT Surgical History: Reports: Myringotomy w Tube(s) Cardiovascular Surgical History: Reports: None GI Surgical History: Reports: Appendectomy, Cholecystectomy Female Surgical History: Reports: Section, Hysterectomy Musculoskeletal Surgical History: Reports: ORIF Social & Family History - Family History Family Medical History: Noncontributory - Caffeine Use Caffeine Use: Reports: None - Living Situation & Occupation Living situation: Reports: 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 - Physical Exam Exam: See Below Exam Limited By: No Limitations General Appearance: Alert, WD/WN Ears: Normal External Exam Nose: Normal Inspection Throat/Mouth: Normal Inspection Head Exam: Atraumatic Course - Vital Signs Last Recorded V/S: Last Vital Signs Temp 98.5 F 01/19/19 21:35 Pulse 95 01/19/19 21:35 Resp 18 01/19/19 21:35 BP 168/90 H 01/19/19 22:20 Pulse Ox 100 01/19/19 21:35 - Orders/Labs/Meds Meds: Medications Discontinued Medications Generic Name Dose Route Start Last Admin Trade Name Amilcarq PRN Reason Stop Dose Admin Clonidine HCl 0.1 mg 01/19/19 22:05 01/19/19 22:20 Catapres PO 01/19/19 22:06 0.1 mg ONETIME ONE Administration Diphenhydramine HCl 50 mg 01/19/19 22:40 01/19/19 22:44 Benadryl PO 01/19/19 22:41 50 mg ONETIME ONE Administration Hydromorphone HCl 1 mg 01/19/19 22:08 01/19/19 22:24 Dilaudid IM 01/19/19 22:09 1 mg ONETIME ONE Administration Hydroxyzine HCl 100 mg 01/19/19 21:59 01/19/19 22:03 Vistaril IM 01/19/19 22:00 Not Given ONETIME ONE Sumatriptan Succinate 6 mg 01/19/19 21:59 01/19/19 22:03 Imitrex SUBCUT 01/19/19 22:00 Not Given ONETIME ONE Departure - Departure Time of Disposition: 23:30 Disposition: Home, Self-Care 01 Clinical Impression: Headache syndrome - Discharge Information Referrals: PCP,None [Primary Care Provider] - - Problem List & Annotations (1) Hypertension, uncontrolled SNOMED Code(s): 48396565, 06805883 Code(s): I10 - ESSENTIAL (PRIMARY) HYPERTENSION Status: Acute Current Visit: No (2) End stage renal disease Status: Acute Current Visit: No (3) Headache SNOMED Code(s): 34263300 Code(s): R51 - HEADACHE Status: Acute Current Visit: No - Problem List Review Problem List Initiated/Reviewed/Updated: Yes - Assessment/Plan Plan: Patient refused Imitrex. She wanted Dilaudid,Benadryl and Reglan-what she got last time.I did eventually give her Dilaudid 1 mg IM. Her BP stayed high , despite Clonidine. She stated that SHE HAD NOT TAKEN HER HOME MEDS. DC home and follow up with PCP,discuss prophylactic meds for Migraines
[2019-01-19] MEDS ORDERED: diphenhydrAMINE 50 MG Cap PO ONE (22:40)
== END 2019-01-19 23:10 | disposition home or self-care (01) ==
LOC: FB.ED 21:27
DX: R51 Headache (principal); E10.9 Type 1 diabetes mellitus without complications; I10 Essential (primary) hypertension; Z90.49 Acquired absence of other specified parts of digestive tract; Z90.710 Acquired absence of both cervix and uterus; Z91.040 Latex allergy status; Z88.2 Allergy status to sulfonamides; Z88.1 Allergy status to other antibiotic agents; Z79.4 Long term (current) use of insulin; Z79.899 Other long term (current) drug therapy
CPT/HCPCS: 96372; 99282; A9270; J1170

== ENCOUNTER 2019-02-11 22:39 | Emergency (ER) | payer MEDICAID ==
--- NOTE | 2019-02-11 22:56 | EDM.PDOC ---
ED HPI GENERAL MEDICAL PROBLEM - General Chief Complaint: Genitourinary Problem Stated Complaint: BLADDER PAIN Time Seen by Provider: 02/11/19 22:55 Source of Information: Reports: Patient History Limitations: Reports: No Limitations - History of Present Illness INITIAL COMMENTS - FREE TEXT/NARRATIVE: 28-year-old female who reports 5 days ago she began to have lower abdominal pain. It is aching and throbbing pain that has progressively worsened with time. She also has had some tingling and slight burning with urination during this time. She rates this pain as a 9/10. There is no radiation of the pain. About 2 days ago she began to develop pain in bilateral mid back. This pain is also an aching and throbbing pain. This pain is rated by her as a 10/10. There is no radiation of this pain. She also reports that she has had a fever all along with a temperature of 103F earlier today. She reports that she has had some chills and she has not been sleeping well. He has chronic nausea with recurrent vomiting which is related to her diabetic gastroparesis but this is unchanged. She has not had much of an appetite but she has been drinking liquids well. She still urinates and has noticed no blood in her urine. Patient reports generalized malaise and an increase in her level of fatigue. There are no other associated signs or symptoms. There are no other modifying factors. Onset: Other (As above) Duration: Getting Worse Location: Reports: Abdomen, Back Quality: Reports: Ache, Throbbing Severity: Moderate (to severe) Improves with: Reports: None Worsens with: Reports: Other (Palpation), Movement Context: Reports: Other (As above) Associated Symptoms: Reports: Fever/Chills, Loss of Appetite, Other (Fatigue) Treatments ROCK WORKER: Reports: Acetaminophen Bladder Pain Score (Numeric/FACES): 9 Flank Pain Score (Numeric/FACES): 10 - Related Data Allergies Allergy/AdvReac Type Severity Reaction Status Date / Time amoxicillin Allergy Difficulty Verified 02/11/19 22:49 Breathing azithromycin Allergy Rash Verified 02/11/19 22:49 fentanyl Allergy Hives Verified 02/11/19 22:49 ketorolac [From Toradol] Allergy Hives Verified 02/11/19 22:49 latex Allergy Rash Verified 02/11/19 22:49 metoclopramide [From Reglan] Allergy Hives Verified 02/11/19 22:49 Penicillins Allergy Difficulty Verified 02/11/19 22:49 Breathing Sulfa (Sulfonamide Allergy Hives Verified 02/11/19 22:49 Antibiotics) vancomycin Allergy Other Verified 02/11/19 22:49 Home Meds: Home Meds Insulin Aspart [NovoLOG] 1 dose SQ ASDIRECTED 12/16/18 [History] Insulin Glarg,Human.Rec.Analog [Lantus Solostar] 1 dose SQ ASDIRECTED 12/16/18 [ History] Atenolol 25 mg PO DAILY 01/19/19 [History] Cephalexin [Keflex] 500 mg PO TID 10 Days #30 capsule 02/12/19 [Rx] Hydrocodone/Acetaminophen [[place] 5-325 Tablet] 1 - 2 tab PO Q6H PRN #12 tablet 02/12/19 [Rx] Past Medical History Other HEENT History: legally blind L eye Cardiovascular History: Reports: Heart Murmur, Hypertension Gastrointestinal 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 (See Below) (Diabetic gastroparesis) Genitourinary History: Reports: Dialysis Other WELFARE PROJECT MANAGER History: Neurological History: Reports: Migraines Endocrine/Metabolic History: Reports: Diabetes, Type I Oncologic (Cancer) History: Reports: Uterine, Other (See Below) Other Oncologic History: oral CA, teeth removed - Past Surgical History HEENT Surgical History: Reports: Myringotomy w Tube(s), Oral Surgery GI Surgical History: Reports: Appendectomy, Cholecystectomy Female Surgical History: Reports: Section, Hysterectomy Musculoskeletal Surgical History: Reports: ORIF Other Surgical History Comment: Port placed. Peritoneal dialysis catheter place. Bilateral arm AV fistulas placed. 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) ED ROS GENERAL - Review of Systems Review Of Systems: See Below Constitutional: Reports: Fever, Chills, Malaise, Fatigue HEENT: Reports: No Symptoms Respiratory: Reports: No Symptoms Cardiovascular: Reports: No Symptoms Endocrine: Reports: Fatigue GI/Abdominal: Reports: Abdominal Pain (Suprapubic area pain), Nausea (Chronic), Vomiting (Chronic) : Reports: Dysuria, Other (Bilateral mid back pain) Musculoskeletal: Reports: Back Pain Skin: Reports: No Symptoms Neurological: Reports: No Symptoms Hematologic/Lymphatic: Reports: No Symptoms Immunologic: Reports: No Symptoms ED EXAM, GI/ABD - Physical Exam Exam: See Below Exam Limited By: No Limitations General Appearance: Alert, WD/WN, No Apparent Distress Eyes: Bilateral: Normal Appearance, EOMI Ears: Normal External Exam, Hearing Grossly Normal Nose: Normal Inspection, Normal Mucosa, No Blood Throat/Mouth: Normal Inspection, Normal Gums, Normal Oropharynx, Normal Voice, No Airway Compromise, Other (Edentulous) Head: Atraumatic, Normocephalic Neck: Normal Inspection, Supple, Non-Tender, Full Range of Motion Respiratory/Chest: No Respiratory Distress, No Accessory Muscle Use, Chest Non- Tender, Rhonchi, Wheezing (Some end-expiratory wheezes that clear with cough.), Other (Good air movement) Cardiovascular: Normal Peripheral Pulses, Regular Rate, Rhythm, No JVD GI/Abdominal Exam: Normal Bowel Sounds, Soft, No Mass, Tender (Suprapubic area.) , Other (Peritoneal dialysis catheter site is clean and without any redness or tenderness with palpation.) Extremities: Normal Inspection, Normal Range of Motion, Non-Tender, No Pedal Edema, Normal Capillary Refill Neurological: Alert, Oriented, CN II-XII Intact, Normal Cognition, No Motor/ Sensory Deficits Psychiatric: Normal Affect Skin Exam: Warm, Dry, Intact, Normal Color, No Rash Course - Vital Signs Last Recorded V/S: Last Vital Signs Temp 36.7 C 02/12/19 01:24 Pulse 86 02/12/19 01:24 Resp 18 02/12/19 01:24 BP 145/93 H 02/12/19 01:24 Pulse Ox 100 02/12/19 01:24 - Orders/Labs/Meds Orders: Active Orders 24 hr Category Date Time Status Abdomen Pelvis wo Cont [CT] Stat Exams 02/11/19 23:57 Taken CULTURE URINE [RM] Stat Lab 02/12/19 00:03 Received Labs: Laboratory Tests 02/11/19 02/11/19 02/11/19 Range/Units 22:50 23:40 23:40 WBC 10.2 (4.5-12.0) X10-3/uL RBC 3.08 L (3.23-5.20) x10(6)uL Hgb 9.3 L D (11.5-15.5) g/dL Hct 27.8 L (30.0-51.3) % MCV 90.3 (80-96) fL MCH 30.1 (27.7-33.6) pg MCHC 33.4 (32.2-35.4) g/dL RDW 13.7 (11.5-15.5) % Plt Count 236 (125-369) X10(3)uL MPV 9.6 (7.4-10.4) fL Neut % (Auto) 69.8 (46-82) % Lymph % (Auto) 19.4 (13-37) % [place] % (Auto) 5.8 (4-12) % Eos % (Auto) 2 (1.0-5.0) % Baso % (Auto) 3 H (0-2) % Neut # (Auto) 7.1 (1.6-8.3) # Lymph # (Auto) 2.0 (0.6-5.0) # [place] # (Auto) 0.6 (0.0-1.3) # Eos # (Auto) 0.2 (0.0-0.8) # Baso # (Auto) 0.3 H (0.0-0.2) # Sodium 136 (135-145) mmol/L Potassium 4.8 (3.5-5.3) mmol/L Chloride 99 L D (100-110) mmol/L Carbon Dioxide 22 (21-32) mmol/L BUN 39 H D (7-18) mg/dL Creatinine 5.5 H* (0.55-1.02) mg/dL Est Cr Clr Drug Dosing 9.43 mL/min Estimated GFR (MDRD) 9 L (>60) BUN/Creatinine Ratio 7.1 L (9-20) Glucose 414 H* D (80-116) mg/dL Calcium 9.3 (8.6-10.2) mg/dL Total Bilirubin 0.5 (0.1-1.3) mg/dL AST 23 (5-25) IU/L ALT 17 (12-36) U/L Alkaline Phosphatase 112 (56-112) IU/L C-Reactive Protein (0.5-0.9) mg/dL Total Protein 6.8 (6.0-8.0) g/dL Albumin 3.5 (3.5-5.2) g/dL Globulin 3.3 g/dL Albumin/Globulin Ratio 1.1 Urine Color Yellow (YELLOW) Urine Appearance Slightly cloudy (CLEAR) Urine pH 7.0 H (5.0-6.5) Ur Specific [place] 1.015 (1.010-1.025) Urine Protein 500 H (NEGATIVE) mg/dL Urine Glucose (UA) >1000 H (NORMAL) mg/dL Urine Ketones Negative (NEGATIVE) mg/dL Urine Occult Blood Moderate H (NEGATIVE) Urine Nitrite Negative (NEGATIVE) Urine Bilirubin Negative (NEGATIVE) Urine Urobilinogen Normal (NEGATIVE) mg/dL Ur Leukocyte Esterase Negative (NEGATIVE) Urine RBC 5-10 H (0-5) Urine WBC 0-5 (0-5) Ur Squamous Epith Cells Moderate H (NS,R,O) Urine Bacteria Few H (NS) Coarse Granular Casts Few H (NS) Urine Mucus Few H (NS) 02/11/19 Range/Units 23:40 WBC (4.5-12.0) X10-3/uL RBC (3.23-5.20) x10(6)uL Hgb (11.5-15.5) g/dL Hct (30.0-51.3) % MCV (80-96) fL MCH (27.7-33.6) pg MCHC (32.2-35.4) g/dL RDW (11.5-15.5) % Plt Count (125-369) X10(3)uL MPV (7.4-10.4) fL Neut % (Auto) (46-82) % Lymph % (Auto) (13-37) % [place] % (Auto) (4-12) % Eos % (Auto) (1.0-5.0) % Baso % (Auto) (0-2) % Neut # (Auto) (1.6-8.3) # Lymph # (Auto) (0.6-5.0) # [place] # (Auto) (0.0-1.3) # Eos # (Auto) (0.0-0.8) # Baso # (Auto) (0.0-0.2) # Sodium (135-145) mmol/L Potassium (3.5-5.3) mmol/L Chloride (100-110) mmol/L Carbon Dioxide (21-32) mmol/L BUN (7-18) mg/dL Creatinine (0.55-1.02) mg/dL Est Cr Clr Drug Dosing mL/min Estimated GFR (MDRD) (>60) BUN/Creatinine Ratio (9-20) Glucose (80-116) mg/dL Calcium (8.6-10.2) mg/dL Total Bilirubin (0.1-1.3) mg/dL AST (5-25) IU/L ALT (12-36) U/L Alkaline Phosphatase (56-112) IU/L C-Reactive Protein 0.5 (0.5-0.9) mg/dL Total Protein (6.0-8.0) g/dL Albumin (3.5-5.2) g/dL Globulin g/dL Albumin/Globulin Ratio Urine Color (YELLOW) Urine Appearance (CLEAR) Urine pH (5.0-6.5) Ur Specific [place] (1.010-1.025) Urine Protein (NEGATIVE) mg/dL Urine Glucose (UA) (NORMAL) mg/dL Urine Ketones (NEGATIVE) mg/dL Urine Occult Blood (NEGATIVE) Urine Nitrite (NEGATIVE) Urine Bilirubin (NEGATIVE) Urine Urobilinogen (NEGATIVE) mg/dL Ur Leukocyte Esterase (NEGATIVE) Urine RBC (0-5) Urine WBC (0-5) Ur Squamous Epith Cells (NS,R,O) Urine Bacteria (NS) Coarse Granular Casts (NS) Urine Mucus (NS) Meds: Medications Discontinued Medications Generic Name Dose Route Start Last Admin Trade Name Freq PRN Reason Stop Dose Admin Ceftriaxone Sodium 1 gm 02/12/19 00:58 02/12/19 01:06 Rocephin IM 02/12/19 00:59 Not Given ONETIME ONE Cephalexin 1,000 mg 02/12/19 01:07 02/12/19 01:25 Keflex PO 02/12/19 01:08 1,000 mg ONETIME ONE Administration Ondansetron HCl 4 mg 02/11/19 23:57 02/12/19 00:01 Zofran Odt PO 02/11/19 23:58 4 mg ONETIME ONE Administration Oxycodone HCl 10 mg 02/11/19 23:57 02/12/19 00:04 Oxycodone PO 02/11/19 23:58 10 mg ONETIME ONE Administration - Re-Assessments/Exams Free Text/Narrative Re-Assessment/Exam: 02/11/19 23:58: Patient's urinalysis does show some evidence of infection but there is also some blood in her urine. I will send the urine for culture and I will also order a CT of her abdomen and pelvis to rule out kidney stones as she does have a history of these. I have also ordered the patient the patient oxycodone 10 mg and Zofran 4 mg ODT, both to be given by mouth. 02/12/19 00:56: CT scan of abdomen and pelvis showed a possible left distal ureteral stone that was 2 mm. There was no hydronephrosis and this was somewhat equivocal finding according to the radiologist. The patient does have evidence of a urinary tract infection and I will treat the patient with Keflex 1 g by mouth (the patient has had Rocephin before without problems per the patient and Keflex is in the same family as Rocephin. I had originally planned on giving the patient Rocephin 1 g IM but she refused this). I will also place the patient on Keflex 500 mg 3 times a day for 10 days and I will give her a prescription for hydrocodone 5/325 that she can take for her pain. She will need to follow-up with her primary doctor. Departure - Departure Time of Disposition: 01:15 Disposition: Home, Self-Care 01 Condition: Good (Improved) Clinical Impression: Left ureteral stone, Mid back pain UTI (urinary tract infection) Qualifiers: Urinary tract infection type: site unspecified Hematuria presence: with hematuria Qualified Code(s): N39.0 - Urinary tract infection, site not specified ; R31.9 - Hematuria, unspecified Abdominal pain Qualifiers: Abdominal location: lower abdomen, unspecified Qualified Code(s): R10.30 - Lower abdominal pain, unspecified - Discharge Information Prescriptions: Cephalexin [Keflex] 500 mg PO TID 10 Days #30 capsule Hydrocodone/Acetaminophen [[place] 5-325 Tablet] 1 - 2 tab PO Q6H PRN #12 tablet PRN Reason: Moderate to severe pain Instructions: Kidney Stones, [id number], Urinary Tract Infection, Adult, Easy -to-Read Referrals: PCP,None [Primary Care Provider] - Forms: ED Department Discharge Additional Instructions: Your blood tests were either unchanged or normal. Your urine test showed some evidence of infection. The urine was sent for culture. The CT scan of your abdomen and pelvis showed a possible kidney stone in the distal left ureter. There was no evidence of blockage with no dilation of your ureter. You need to increase your fluid intake. You need to rest. You were given an antibiotic in the emergency department (Rocephin) to begin treatment of your infection. Medication as prescribed (Keflex 500 mg, hydrocodone 5/325). Follow-up with your primary doctor this week for recheck. Back to the emergency department for worsening pain, unrelenting vomiting, persistently high fever or any other concerning sign or symptom. - My Orders Last 24 Hours: My Active Orders 02/11/19 23:57 Abdomen Pelvis wo Cont [CT] Stat 02/12/19 00:03 CULTURE URINE [RM] Stat - Assessment/Plan Last 24 Hours: My Active Orders 02/11/19 23:57 Abdomen Pelvis wo Cont [CT] Stat 02/12/19 00:03 CULTURE URINE [RM] Stat
[2019-02-12] MEDS: Ondansetron 4 MG Tab.DIS PO ONE (00:01)
[2019-02-12] MEDS: oxyCODONE 5 MG Tab PO ONE (00:04)
[2019-02-12] MEDS: cefTRIAXone 1 GM Vial IM ONE (01:06)
[2019-02-12] MEDS: Cephalexin 500 MG Cap PO ONE (01:25)
== END 2019-02-12 01:27 | disposition home or self-care (01) ==
LOC: FB.ED 22:39
DX: N39.0 Urinary tract infection, site not specified (principal); N20.1 Calculus of ureter; M54.6 Pain in thoracic spine; R31.9 Hematuria, unspecified; I10 Essential (primary) hypertension; E10.43 Type 1 diabetes mellitus with diabetic autonomic (poly)neuropathy; K31.84 Gastroparesis; G43.909 Migraine, unspecified, not intractable, without status migrainosus; F17.210 Nicotine dependence, cigarettes, uncomplicated; Z88.1 Allergy status to other antibiotic agents; Z88.8 Allergy status to other drugs, medicaments and biological substances; Z88.6 Allergy status to analgesic agent; Z91.040 Latex allergy status; Z88.0 Allergy status to penicillin; Z88.2 Allergy status to sulfonamides; Z79.899 Other long term (current) drug therapy; Z85.819 Personal history of malignant neoplasm of unspecified site of lip, oral cavity, and pharynx
CPT/HCPCS: 36415; 74176; 80053; 81001; 85025; 86140; 87086; 99284; A9270

== ENCOUNTER 2019-02-20 20:28 | Emergency (ER) | payer MEDICAID ==
[2019-02-20] MEDS ORDERED: traMADol 50 MG Tab PO ONE (21:00)
[2019-02-20] MEDS ORDERED: diphenhydrAMINE 50 MG Cap PO ONE (21:00)
--- NOTE | 2019-02-20 21:05 | EDM.PDOC ---
ED HPI GENERAL MEDICAL PROBLEM - General Chief Complaint: Headache Stated Complaint: MIGRIANE,BLADDER INFECTION Time Seen by Provider: 02/20/19 21:00 Source of Information: Reports: Patient, Family, Old Records History Limitations: Reports: No Limitations - History of Present Illness INITIAL COMMENTS - FREE TEXT/NARRATIVE: Luis returns to [facility] ED with another global headache. She has been seen here numerous times for similiar issues related to CKD V and chronic peritoneal dialysis. She has used Benadryl in the past, but was told she could no longer use Reglan. She is accepting of oral anlagesics, and will be administered Tramadol and Benadryl po. She sees her neuro ophthalmologist on Tuesday this week. Headache Pain Score (Numeric/FACES): 8 - Related Data Allergies Allergy/AdvReac Type Severity Reaction Status Date / Time amoxicillin Allergy Difficulty Verified 02/20/19 21:03 Breathing azithromycin Allergy Rash Verified 02/20/19 21:03 fentanyl Allergy Hives Verified 02/20/19 21:03 ketorolac [From Toradol] Allergy Hives Verified 02/20/19 21:03 latex Allergy Rash Verified 02/20/19 21:03 metoclopramide [From Reglan] Allergy Hives Verified 02/20/19 21:03 Penicillins Allergy Difficulty Verified 02/20/19 21:03 Breathing Sulfa (Sulfonamide Allergy Hives Verified 02/20/19 21:03 Antibiotics) vancomycin Allergy Other Verified 02/20/19 21:03 Home Meds: Home Meds Insulin Aspart [NovoLOG] 1 dose SQ ASDIRECTED 12/16/18 [History] Insulin Glarg,Human.Rec.Analog [Lantus Solostar] 1 dose SQ ASDIRECTED 12/16/18 [ History] Atenolol 25 mg PO DAILY 01/19/19 [History] Cephalexin [Keflex] 500 mg PO TID 10 Days #30 capsule 02/12/19 [Rx] Hydrocodone/Acetaminophen [[place] 5-325 Tablet] 1 - 2 tab PO Q6H PRN #12 tablet 02/12/19 [Rx] Past Medical History HEENT History: Reports: None Other HEENT History: legally blind L eye Cardiovascular History: Reports: Heart Murmur, Hypertension Gastrointestinal 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 (See Below) (Diabetic gastroparesis) Genitourinary History: Reports: Dialysis COSMETOLOGY PROFESSOR 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 COSMETOLOGY PROFESSOR History: Musculoskeletal History: Reports: Fracture Other Musculoskeletal History: hx fx L forearm Neurological History: Reports: Migraines Endocrine/Metabolic History: Reports: Diabetes, Type I Oncologic (Cancer) History: Reports: Uterine, Other (See Below) Other Oncologic History: oral CA, teeth removed - Past Surgical History HEENT Surgical History: Reports: Myringotomy w Tube(s), Oral Surgery GI Surgical History: Reports: Appendectomy, Cholecystectomy Female Surgical History: Reports: Section, Hysterectomy Musculoskeletal Surgical History: Reports: ORIF Other Surgical History Comment: Port placed. Peritoneal dialysis catheter place. Bilateral arm AV fistulas placed. 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 ED EXAM, GENERAL - Physical Exam Exam: See Below Exam Limited By: No Limitations General Appearance: Alert, WD/WN, Anxious, Moderate Distress, Thin Eye Exam: Bilateral Eye: EOMI, Normal Inspection, PERRL Ears: Normal External Exam Nose: Normal Inspection Throat/Mouth: Normal Inspection, Normal Oropharynx Neck: Normal Inspection Respiratory/Chest: Lungs Clear Cardiovascular: Regular Rate, Rhythm GI/Abdominal: Normal Bowel Sounds, Soft, Non-Tender, No Organomegaly, No Distention, No Mass, Other (peritoneal catheter present.) (Female) Exam: Deferred Rectal (Female) Exam: Deferred Back Exam: Normal Inspection Extremities: Normal Inspection Neurological: Alert, Oriented, CN II-XII Intact Psychiatric: Normal Affect, Anxious Skin Exam: Warm, Dry, Intact, Normal Color Lymphatic: No Adenopathy Course - Vital Signs Text/Narrative:: Following assessment, I administered Hydrocodone 5 mg po and Benadryl 50 mg po, without relief after 1/2 hour. I discussed options, and patient consent to Dilaudid 1 mg IM, and she was subsequently discharged home in stable condition. Last Recorded V/S: Last Vital Signs Temp 37.2 C 02/20/19 20:45 Pulse 93 02/20/19 20:45 Resp 20 02/20/19 20:45 BP 210/98 H 02/20/19 20:45 Pulse Ox 98 02/20/19 20:45 - Orders/Labs/Meds Meds: Medications Discontinued Medications Generic Name Dose Route Start Last Admin Trade Name Dodie PRToribio Reason Stop Dose Admin Diphenhydramine HCl 50 mg 02/20/19 21:00 02/20/19 21:07 Benadryl PO 02/20/19 21:01 50 mg ONETIME ONE Administration Hydromorphone HCl 1 mg 02/20/19 22:35 02/20/19 22:30 Dilaudid IM 02/20/19 22:36 1 mg ONETIME ONE Administration Tramadol HCl 50 mg 02/20/19 21:00 02/20/19 21:07 Ultram PO 02/20/19 21:01 50 mg ONETIME ONE Administration Departure - Departure Time of Disposition: 22:45 Disposition: Home, Self-Care 01 Condition: Fair Clinical Impression: Headache syndrome - Discharge Information *PRESCRIPTION DRUG MONITORING PROGRAM REVIEWED*: Not Applicable *COPY OF PRESCRIPTION DRUG MONITORING REPORT IN PATIENT RACHAEL: Not Applicable Referrals: PCP,None [Primary Care Provider] - Forms: ED Department Discharge - Problem List & Annotations (1) Headache syndrome SNOMED Code(s): 278390275 Code(s): G44.89 - OTHER HEADACHE SYNDROME Status: Acute Current Visit: Yes Annotation/Comment:: Luis will rest tonight, and follow up with Instrument Processing Tech this week. - Problem List Review Problem List Initiated/Reviewed/Updated: Yes - Assessment/Plan Plan: Follow up with Instrument Processing Tech.
[2019-02-20] MEDS ORDERED: HYDROmorphone 2 MG/ML SDV IM ONE (22:35)
== END 2019-02-20 23:07 | disposition home or self-care (01) ==
LOC: FB.ED 20:28
DX: G44.89 Other headache syndrome (principal); E10.43 Type 1 diabetes mellitus with diabetic autonomic (poly)neuropathy; K31.84 Gastroparesis; I12.0 Hypertensive chronic kidney disease with stage 5 chronic kidney disease or end stage renal disease; E10.22 Type 1 diabetes mellitus with diabetic chronic kidney disease; N18.6 End stage renal disease; Z88.1 Allergy status to other antibiotic agents; Z91.040 Latex allergy status; Z88.0 Allergy status to penicillin; Z88.2 Allergy status to sulfonamides; Z88.6 Allergy status to analgesic agent; Z88.8 Allergy status to other drugs, medicaments and biological substances; Z99.2 Dependence on renal dialysis; Z85.819 Personal history of malignant neoplasm of unspecified site of lip, oral cavity, and pharynx; Z79.899 Other long term (current) drug therapy
CPT/HCPCS: 96372; 99283; A9270; J1170

== ENCOUNTER 2019-02-25 17:37 | Emergency (ER) | payer MEDICAID ==
[2019-02-25] MEDS ORDERED: diphenhydrAMINE 50 MG/ML SDV IM ONE (18:00)
[2019-02-25] MEDS ORDERED: HYDROmorphone 2 MG/ML SDV IM ONE (18:01)
--- NOTE | 2019-02-25 18:19 | EDM.PDOC ---
ED HPI GENERAL MEDICAL PROBLEM - General Chief Complaint: Headache Stated Complaint: MIGRAINE Time Seen by Provider: 02/25/19 17:50 Source of Information: Reports: Patient, Family, Old Records History Limitations: Reports: No Limitations - History of Present Illness INITIAL COMMENTS - FREE TEXT/NARRATIVE: Luis returns to [facility] ED with a relapse of migraine headache today, unimproved with home meds and phone visit the Nephrology nurse. Her BP tends to rise with headache sxs, and she is requesting treatment in advance of Clinic visit tomorrow. Headache is global, with some facial pressure. There was no aura or scotomata. I saw her on February 20 with similar sxs, notes reviewed. Headache Pain Score (Numeric/FACES): 10 - Related Data Allergies Allergy/AdvReac Type Severity Reaction Status Date / Time amoxicillin Allergy Difficulty Verified 02/25/19 17:46 Breathing azithromycin Allergy Rash Verified 02/25/19 17:46 fentanyl Allergy Hives Verified 02/25/19 17:46 ketorolac [From Toradol] Allergy Hives Verified 02/25/19 17:46 latex Allergy Rash Verified 02/25/19 17:46 metoclopramide [From Reglan] Allergy Hives Verified 02/25/19 17:46 Penicillins Allergy Difficulty Verified 02/25/19 17:46 Breathing Sulfa (Sulfonamide Allergy Hives Verified 02/25/19 17:46 Antibiotics) vancomycin Allergy Other Verified 02/25/19 17:46 Home Meds: Home Meds Insulin Aspart [NovoLOG] 1 dose SQ ASDIRECTED 12/16/18 [History] Insulin Glarg,Human.Rec.Analog [Lantus Solostar] 1 dose SQ ASDIRECTED 12/16/18 [ History] Atenolol 25 mg PO DAILY 01/19/19 [History] Cephalexin [Keflex] 500 mg PO TID 10 Days #30 capsule 02/12/19 [Rx] Hydrocodone/Acetaminophen [[place] 5-325 Tablet] 1 - 2 tab PO Q6H PRN #12 tablet 02/12/19 [Rx] Past Medical History HEENT History: Reports: None Other HEENT History: legally blind L eye Cardiovascular History: Reports: Heart Murmur, Hypertension Gastrointestinal 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 (See Below) (Diabetic gastroparesis) Genitourinary History: Reports: Dialysis STACKING MACHINE OPERATOR 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 STACKING MACHINE OPERATOR History: Musculoskeletal History: Reports: Fracture Other Musculoskeletal History: hx fx L forearm Neurological History: Reports: Migraines Endocrine/Metabolic History: Reports: Diabetes, Type I Oncologic (Cancer) History: Reports: Uterine, Other (See Below) Other Oncologic History: oral CA, teeth removed - Past Surgical History HEENT Surgical History: Reports: Myringotomy w Tube(s), Oral Surgery GI Surgical History: Reports: Appendectomy, Cholecystectomy Female Surgical History: Reports: Section, Hysterectomy Musculoskeletal Surgical History: Reports: ORIF Other Surgical History Comment: Port placed. Peritoneal dialysis catheter place. Bilateral arm AV fistulas placed. 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 - Physical Exam Exam: See Below Exam Limited By: No Limitations General Appearance: Alert, WD/WN, Anxious, Moderate Distress Eye Exam: Bilateral Eye: EOMI, Normal Inspection, PERRL Ears: Normal External Exam, Normal TMs Nose: Normal Inspection Throat/Mouth: Normal Inspection, Normal Lips, Normal Oropharynx, Normal Voice Head Exam: Normocephalic, Scalp Tenderness Neck: Normal Inspection, Supple Respiratory/Chest: Lungs Clear Cardiovascular: Regular Rate, Rhythm GI/Abdominal: Normal Bowel Sounds, Soft, Non-Tender, No Organomegaly, No Distention, No Mass, Other (peritoneal catheter in place) (Female) Exam: Deferred Rectal (Female) Exam: Deferred Neuro Exam (Abbreviated): Alert, Oriented, CN II-XII Intact, Normal Cognition, Normal Gait, No Motor/Sensory Deficits Back Exam: Normal Inspection Extremities: Normal Inspection Psychiatric: Normal Affect, Anxious Skin Exam: Warm, Dry, Intact, Normal Color, No Rash Course - Vital Signs Text/Narrative:: Following assessment, I administered Dilaudid 1 mg IM and Benadryl 50 mg IM. Patient was observed, and left the ED clinically improved. Last Recorded V/S: Last Vital Signs Temp 37.0 C 02/25/19 17:42 Pulse 92 02/25/19 18:30 Resp 18 02/25/19 18:30 BP 165/90 H 02/25/19 18:30 Pulse Ox 97 02/25/19 18:30 - Orders/Labs/Meds Meds: Medications Discontinued Medications Generic Name Dose Route Start Last Admin Trade Name Dodie PRN Reason Stop Dose Admin Diphenhydramine HCl 50 mg 02/25/19 18:00 02/25/19 18:09 Benadryl IM 02/25/19 18:01 50 mg ONETIME ONE Administration Hydromorphone HCl 1 mg 02/25/19 18:01 02/25/19 18:09 Dilaudid IM 02/25/19 18:02 1 mg ONETIME ONE Administration Departure - Departure Time of Disposition: 18:30 Disposition: Home, Self-Care 01 Condition: Fair Clinical Impression: Migraine headache Qualifiers: Migraine type: unspecified Status migrainosus presence: without status migrainosus Intractability: not intractable Qualified Code(s): G43.909 - Migraine, unspecified, not intractable, without status migrainosus - Discharge Information *PRESCRIPTION DRUG MONITORING PROGRAM REVIEWED*: Not Applicable *COPY OF PRESCRIPTION DRUG MONITORING REPORT IN PATIENT RACHAEL: Not Applicable Instructions: Migraine Headache Referrals: PCP,None [Primary Care Provider] - Forms: ED Department Discharge Additional Instructions: Keep scheduled appointment. Follow up with primary doctor. - Problem List & Annotations (1) Migraine headache SNOMED Code(s): 99026494 Code(s): G43.909 - MIGRAINE, UNSP, NOT INTRACTABLE, WITHOUT STATUS MIGRAINOSUS Status: Acute Annotation/Comment:: Resume home therapy and follow up with Nephrology tomorrow. Qualifiers: Migraine type: without aura Status migrainosus presence: without status migrainosus Intractability: not intractable Qualified Code(s): G43.009 - Migraine without aura, not intractable, without status migrainosus - Problem List Review Problem List Initiated/Reviewed/Updated: Yes - Assessment/Plan Plan: Follow up with Nephrology.
== END 2019-02-25 18:40 | disposition home or self-care (01) ==
LOC: FB.ED 17:37
DX: G40.909 Epilepsy, unspecified, not intractable, without status epilepticus (principal); I10 Essential (primary) hypertension; Z88.1 Allergy status to other antibiotic agents; Z88.2 Allergy status to sulfonamides; Z88.0 Allergy status to penicillin; Z88.8 Allergy status to other drugs, medicaments and biological substances; Z91.040 Latex allergy status; Z79.899 Other long term (current) drug therapy; Z79.4 Long term (current) use of insulin; Z90.710 Acquired absence of both cervix and uterus; Z90.49 Acquired absence of other specified parts of digestive tract
CPT/HCPCS: 96372; 99283; J1170; J1200

== ENCOUNTER 2019-03-04 19:53 | Emergency (ER) | payer MEDICAID ==
[2019-03-04] MEDS ORDERED: HYDROmorphone 2 MG/ML SDV IM ONE (20:16)
[2019-03-04] MEDS ORDERED: diphenhydrAMINE 50 MG/ML SDV IM ONE (20:16)
--- NOTE | 2019-03-04 20:20 | EDM.PDOC ---
ED HPI GENERAL MEDICAL PROBLEM - General Chief Complaint: Headache Stated Complaint: MIGRAINE Time Seen by Provider: 03/04/19 19:56 Source of Information: Reports: Patient, Family History Limitations: Reports: No Limitations - History of Present Illness INITIAL COMMENTS - FREE TEXT/NARRATIVE: 28 y.o.w.f with multiple med issues, including HTN and akathisia , frequent visits to this ed came to the ed due to her classic migraine headache for which she always gets Benadryl and Dilaudid, nothing else "works for her" and she was seen by a neurologist for that. She has photophobia and feels some nausea. No trauma, no SOB, no CP or any other acute med issues. BP 180/93 RR 18 Pulse ox 98 % on RA Temp 36.9 Onset Date: 03/04/19 Onset Time: 10:00 Duration: Hour(s):, Intermittent Location: Reports: Chest Quality: Reports: Dull, Same as Previous Episode Severity: Mild Improves with: Reports: Medication, Rest Worsens with: Reports: Other (stress) Context: Reports: Other (Multiple med issues, including Migraine H/A) Associated Symptoms: Reports: Headaches, Other (H/A) headache Pain Score (Numeric/FACES): 8 - Related Data Allergies Allergy/AdvReac Type Severity Reaction Status Date / Time amoxicillin Allergy Difficulty Verified 03/04/19 20:34 Breathing azithromycin Allergy Rash Verified 03/04/19 20:34 fentanyl Allergy Hives Verified 03/04/19 20:34 ketorolac [From Toradol] Allergy Hives Verified 03/04/19 20:34 latex Allergy Rash Verified 03/04/19 20:34 metoclopramide [From Reglan] Allergy Hives Verified 03/04/19 20:34 Penicillins Allergy Difficulty Verified 03/04/19 20:34 Breathing Sulfa (Sulfonamide Allergy Hives Verified 03/04/19 20:34 Antibiotics) vancomycin Allergy Other Verified 03/04/19 20:34 Home Meds: Home Meds Insulin Aspart [NovoLOG] 1 dose SQ ASDIRECTED 12/16/18 [History] Insulin Glarg,Human.Rec.Analog [Lantus Solostar] 1 dose SQ ASDIRECTED 12/16/18 [ History] Atenolol 25 mg PO DAILY 01/19/19 [History] Hydrocodone/Acetaminophen [[place] 5-325 Tablet] 1 - 2 tab PO Q6H PRN #12 tablet 02/12/19 [Rx] Past Medical History HEENT History: Reports: None Other HEENT History: legally blind L eye Cardiovascular History: Reports: Heart Murmur, Hypertension Gastrointestinal 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 (See Below) (Diabetic gastroparesis) Genitourinary History: Reports: Dialysis 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 BENCH CARPENTER History: Musculoskeletal History: Reports: Fracture Other Musculoskeletal History: hx fx L forearm Neurological History: Reports: Migraines Endocrine/Metabolic History: Reports: Diabetes, Type I Oncologic (Cancer) History: Reports: Uterine, Other (See Below) Other Oncologic History: oral CA, teeth removed - Past Surgical History HEENT Surgical History: Reports: Myringotomy w Tube(s), Oral Surgery GI Surgical History: Reports: Appendectomy, Cholecystectomy Female Surgical History: Reports: Section, Hysterectomy Musculoskeletal Surgical History: Reports: ORIF Other Surgical History Comment: Port placed. Peritoneal dialysis catheter place. Bilateral arm AV fistulas placed. 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) ED ROS GENERAL - Review of Systems Review Of Systems: See Below Constitutional: Reports: No Symptoms HEENT: Reports: No Symptoms Respiratory: Reports: No Symptoms Cardiovascular: Reports: No Symptoms Endocrine: Reports: No Symptoms GI/Abdominal: Reports: No Symptoms : Reports: No Symptoms Musculoskeletal: Reports: No Symptoms Skin: Reports: No Symptoms Neurological: Reports: Headache Psychiatric: Reports: No Symptoms Hematologic/Lymphatic: Reports: No Symptoms Immunologic: Reports: No Symptoms - Physical Exam Exam: See Below Exam Limited By: No Limitations General Appearance: Alert, WD/WN, Mild Distress Eye Exam: Bilateral Eye: Normal Inspection Ears: Normal External Exam Nose: Normal Inspection Throat/Mouth: Normal Lips, Normal Voice, No Airway Compromise Head Exam: Atraumatic, Normocephalic Neck: Normal Inspection, Supple, Non-Tender, Full Range of Motion Respiratory/Chest: No Respiratory Distress, Lungs Clear, Normal Breath Sounds Cardiovascular: Normal Peripheral Pulses, Regular Rate, Rhythm, No Edema, No Gallop, No Murmur, No Rub GI/Abdominal: Normal Bowel Sounds, Soft, Non-Tender, No Organomegaly, No Distention, No Abnormal Bruit, No Mass, Pelvis Stable (Female) Exam: Deferred Rectal (Female) Exam: Deferred Neuro Exam (Abbreviated): Alert, Oriented, CN II-XII Intact, Normal Cognition, Normal Gait Back Exam: Normal Inspection Extremities: Normal Inspection Psychiatric: Normal Affect, Normal Mood Skin Exam: Warm, Dry, Intact, Normal Color, No Rash Course - Vital Signs Text/Narrative:: 28 y.o.w.f with multiple med issues, including HTN and akathisia , frequent visits to this ed came to the ed due to her classic migraine headache for which she always gets Benadryl and Dilaudid, nothing else "works for her" and she was seen by a neurologist for that. She has photophobia and feels some nausea. No trauma, no SOB, no CP or any other acute med issues. BP 180/93 RR 18 Pulse ox 98 % on RA Temp 36.9 PE: Cachectic 28 y.o.w f with headache. Pt staed her BP is elevated when she is in pain Impression: Migraine H/A, chronic intermittent Tx: Dilaudid, Benadryl Reexam: Pain improved, please check the nursing note for vitals on D/C Plan: D/C with instructions Last Recorded V/S: Last Vital Signs Temp 37.1 C 03/04/19 20:00 Pulse 95 03/04/19 20:00 Resp 16 03/04/19 20:00 BP 180/93 H 03/04/19 20:00 Pulse Ox 99 03/04/19 20:00 - Orders/Labs/Meds Meds: Medications Discontinued Medications Generic Name Dose Route Start Last Admin Trade Name Dodie PRN Reason Stop Dose Admin Diphenhydramine HCl 50 mg 03/04/19 20:16 03/04/19 20:20 Benadryl IM 03/04/19 20:17 50 mg ONETIME ONE Administration Hydromorphone HCl 1 mg 03/04/19 20:16 03/04/19 20:20 Dilaudid IM 03/04/19 20:17 1 mg ONETIME ONE Administration Departure - Departure Time of Disposition: 20:19 Disposition: Home, Self-Care 01 Condition: Good Clinical Impression: Migraine headache Qualifiers: Migraine type: without aura Status migrainosus presence: without status migrainosus Intractability: not intractable Qualified Code(s): G43.009 - Migraine without aura, not intractable, without status migrainosus - Discharge Information Referrals: PCP,None [Primary Care Provider] - Forms: ED Department Discharge Additional Instructions: Please cont your current meds, please f/u, come back if your symptoms get worse acutely
== END 2019-03-04 20:27 | disposition home or self-care (01) ==
LOC: FB.ED 19:53
DX: G43.009 Migraine without aura, not intractable, without status migrainosus (principal); I10 Essential (primary) hypertension; E10.9 Type 1 diabetes mellitus without complications; Z88.1 Allergy status to other antibiotic agents; Z88.8 Allergy status to other drugs, medicaments and biological substances; Z91.040 Latex allergy status; Z88.0 Allergy status to penicillin; Z88.2 Allergy status to sulfonamides; Z79.899 Other long term (current) drug therapy
CPT/HCPCS: 96372; 99282; J1170; J1200

== ENCOUNTER 2019-03-10 22:47 | Emergency (ER) | payer MEDICAID ==
[2019-03-10] MEDS ORDERED: HYDROmorphone 2 MG/ML SDV IM ONE (23:04)
[2019-03-10] MEDS ORDERED: diphenhydrAMINE 50 MG/ML SDV IM ONE (23:04)
--- NOTE | 2019-03-10 23:08 | EDM.PDOC ---
ED HPI GENERAL MEDICAL PROBLEM - General Chief Complaint: Headache Stated Complaint: MIGRAINE Time Seen by Provider: 03/10/19 23:05 Source of Information: Reports: Patient History Limitations: Reports: No Limitations - History of Present Illness INITIAL COMMENTS - FREE TEXT/NARRATIVE: Complains of a headache. Typical migraine since this evening. Associated with Dialysis. Nausea+,Photophobia. No fever. Head Pain Score (Numeric/FACES): 10 - Related Data Allergies Allergy/AdvReac Type Severity Reaction Status Date / Time amoxicillin Allergy Difficulty Verified 03/10/19 22:57 Breathing azithromycin Allergy Rash Verified 03/10/19 22:57 fentanyl Allergy Hives Verified 03/10/19 22:57 ketorolac [From Toradol] Allergy Hives Verified 03/10/19 22:57 latex Allergy Rash Verified 03/10/19 22:57 metoclopramide [From Reglan] Allergy Hives Verified 03/10/19 22:57 Penicillins Allergy Difficulty Verified 03/10/19 22:57 Breathing Sulfa (Sulfonamide Allergy Hives Verified 03/10/19 22:57 Antibiotics) vancomycin Allergy Other Verified 03/10/19 22:57 Home Meds: Home Meds Insulin Aspart [NovoLOG] 1 dose SQ ASDIRECTED 12/16/18 [History] Insulin Glarg,Human.Rec.Analog [Lantus Solostar] 1 dose SQ ASDIRECTED 12/16/18 [ History] Atenolol 25 mg PO DAILY 01/19/19 [History] Hydrocodone/Acetaminophen [[place] 5-325 Tablet] 1 - 2 tab PO Q6H PRN #12 tablet 02/12/19 [Rx] Past Medical History HEENT History: Reports: None Other HEENT History: legally blind L eye Cardiovascular History: Reports: Heart Murmur, Hypertension Gastrointestinal 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 (See Below) (Diabetic gastroparesis) Genitourinary History: Reports: Dialysis PATIENT SUPPORT ASSISTANT 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 PATIENT SUPPORT ASSISTANT History: Musculoskeletal History: Reports: Fracture Other Musculoskeletal History: hx fx L forearm Neurological History: Reports: Migraines Endocrine/Metabolic History: Reports: Diabetes, Type I Oncologic (Cancer) History: Reports: Uterine, Other (See Below) Other Oncologic History: oral CA, teeth removed - Past Surgical History HEENT Surgical History: Reports: Myringotomy w Tube(s), Oral Surgery GI Surgical History: Reports: Appendectomy, Cholecystectomy Female Surgical History: Reports: Section, Hysterectomy Musculoskeletal Surgical History: Reports: ORIF Other Surgical History Comment: Port placed. Peritoneal dialysis catheter place. Bilateral arm AV fistulas placed. 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 - Physical Exam Exam: See Below Exam Limited By: No Limitations General Appearance: Alert, WD/WN, No Apparent Distress Ears: Normal External Exam Nose: Normal Inspection Throat/Mouth: Normal Inspection Head Exam: Atraumatic, Normocephalic Neck: Normal Inspection, Supple, Non-Tender Respiratory/Chest: No Respiratory Distress Cardiovascular: Normal Peripheral Pulses GI/Abdominal: Normal Bowel Sounds Rectal (Female) Exam: Normal Exam Neuro Exam (Abbreviated): Alert, Oriented, CN II-XII Intact Course - Vital Signs Last Recorded V/S: Last Vital Signs Temp 98 F 03/10/19 23:00 Pulse 92 03/10/19 23:00 Resp 18 03/10/19 23:00 BP 180/95 H 03/10/19 23:00 Pulse Ox 98 03/10/19 23:00 - Orders/Labs/Meds Meds: Medications Discontinued Medications Generic Name Dose Route Start Last Admin Trade Name Amilcarq PRN Reason Stop Dose Admin Diphenhydramine HCl 50 mg 03/10/19 23:04 Benadryl IM 03/10/19 23:05 ONETIME ONE Hydromorphone HCl 2 mg 03/10/19 23:04 Dilaudid IM 03/10/19 23:05 ONETIME ONE Departure - Departure Time of Disposition: 23:07 Disposition: Home, Self-Care 01 Clinical Impression: Headache syndrome - Discharge Information Referrals: PCP,None [Primary Care Provider] - - Problem List & Annotations (1) Headache syndrome SNOMED Code(s): 422904938 Code(s): G44.89 - OTHER HEADACHE SYNDROME Status: Acute Current Visit: No Annotation/Comment:: Luis will rest tonight, and follow up with Non Morse Intercept Technician this week. - Problem List Review Problem List Initiated/Reviewed/Updated: Yes - Assessment/Plan Plan: Dilaudid 2 mg IM and [id number] mg IM
== END 2019-03-10 23:17 | disposition home or self-care (01) ==
LOC: FB.ED 22:47
DX: G44.89 Other headache syndrome (principal); I10 Essential (primary) hypertension; E10.9 Type 1 diabetes mellitus without complications; Z88.1 Allergy status to other antibiotic agents; Z88.6 Allergy status to analgesic agent; Z91.040 Latex allergy status; Z88.0 Allergy status to penicillin; Z88.2 Allergy status to sulfonamides; Z79.4 Long term (current) use of insulin; Z99.2 Dependence on renal dialysis
CPT/HCPCS: 96372; 96374; 96375; 99283-25; J1170; J1200

== ENCOUNTER 2019-03-13 19:55 | Emergency (ER) | payer MEDICAID ==
[2019-03-13] MEDS ORDERED: traMADol 50 MG Tab PO ONE (20:25)
[2019-03-13] MEDS ORDERED: diphenhydrAMINE 50 MG Cap PO ONE (20:25)
--- NOTE | 2019-03-13 20:29 | EDM.PDOC ---
ED HPI GENERAL MEDICAL PROBLEM - General Chief Complaint: Headache Stated Complaint: MIGRAINE Time Seen by Provider: 03/13/19 20:26 Source of Information: Reports: Patient History Limitations: Reports: No Limitations - History of Present Illness INITIAL COMMENTS - FREE TEXT/NARRATIVE: Alexandria is a 28-year-old female with headache. I saw a few days ago with a similar complaint. She has chronic headaches that come after dialysis. Global, typical of herhistory, migraine does not respond to other medications except "Dilaudid". She has multiple ER visits both here and at [facility] for a similar reason. She has type 1 diabetes, and end-stage renal disease on chronic dialysis at home. She denies fever chills nausea vomiting. - Related Data Allergies Allergy/AdvReac Type Severity Reaction Status Date / Time amoxicillin Allergy Difficulty Verified 03/13/19 20:18 Breathing azithromycin Allergy Rash Verified 03/13/19 20:18 fentanyl Allergy Hives Verified 03/13/19 20:18 ketorolac [From Toradol] Allergy Hives Verified 03/13/19 20:18 latex Allergy Rash Verified 03/13/19 20:18 metoclopramide [From Reglan] Allergy Hives Verified 03/13/19 20:18 Penicillins Allergy Difficulty Verified 03/13/19 20:18 Breathing Sulfa (Sulfonamide Allergy Hives Verified 03/13/19 20:18 Antibiotics) vancomycin Allergy Other Verified 03/13/19 20:18 Home Meds: Home Meds Insulin Aspart [NovoLOG] 1 dose SQ ASDIRECTED 12/16/18 [History] Insulin Glarg,Human.Rec.Analog [Lantus Solostar] 1 dose SQ ASDIRECTED 12/16/18 [ History] Atenolol 25 mg PO DAILY 01/19/19 [History] Past Medical History HEENT History: Reports: None Other HEENT History: legally blind L eye Cardiovascular History: Reports: Heart Murmur, Hypertension Gastrointestinal 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 (See Below) (Diabetic gastroparesis) Genitourinary History: Reports: Dialysis FUR POINTER 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 FUR POINTER History: Musculoskeletal History: Reports: Fracture Other Musculoskeletal History: hx fx L forearm Neurological History: Reports: Migraines Endocrine/Metabolic History: Reports: Diabetes, Type I Oncologic (Cancer) History: Reports: Uterine, Other (See Below) Other Oncologic History: oral CA, teeth removed - Past Surgical History HEENT Surgical History: Reports: Myringotomy w Tube(s), Oral Surgery GI Surgical History: Reports: Appendectomy, Cholecystectomy Female Surgical History: Reports: Section, Hysterectomy Musculoskeletal Surgical History: Reports: ORIF Other Surgical History Comment: Port placed. Peritoneal dialysis catheter place. Bilateral arm AV fistulas placed. 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 - Physical Exam Exam: See Below Exam Limited By: No Limitations General Appearance: Alert, WD/WN, No Apparent Distress Ears: Normal External Exam, Normal Canal, Hearing Grossly Normal, Normal TMs Nose: Normal Inspection, Normal Mucosa, No Blood Throat/Mouth: Normal Inspection, Normal Lips, Normal Teeth, Normal Gums, Normal Oropharynx, Normal Voice, No Airway Compromise Head Exam: Atraumatic, Normocephalic Neck: Normal Inspection, Supple, Non-Tender, Full Range of Motion Respiratory/Chest: No Respiratory Distress, Lungs Clear, Normal Breath Sounds, No Accessory Muscle Use, Chest Non-Tender Cardiovascular: Normal Peripheral Pulses, Regular Rate, Rhythm, No Edema, No Gallop, No JVD, No Murmur, No Rub GI/Abdominal: Normal Bowel Sounds, Soft, Non-Tender, No Organomegaly, No Distention, No Abnormal Bruit, No Mass (Female) Exam: Normal External Exam, Normal Speculum Exam, Normal Bimanual Exam Rectal (Female) Exam: Normal Exam, Normal Rectal Tone Neuro Exam (Abbreviated): Alert, Oriented, CN II-XII Intact, Normal Cognition, Normal Gait, Normal Reflexes, No Motor/Sensory Deficits Back Exam: Normal Inspection, Full Range of Motion, NT Extremities: Normal Inspection, Normal Range of Motion, Non-Tender, No Pedal Edema, Normal Capillary Refill Psychiatric: Normal Affect, Normal Mood Skin Exam: Warm, Dry, Intact, Normal Color, No Rash Course - Vital Signs Last Recorded V/S: Last Vital Signs Temp 98.5 F 03/13/19 19:57 Pulse 108 H 03/13/19 19:57 Resp 16 03/13/19 19:57 BP 169/117 H 03/13/19 19:57 Pulse Ox 100 03/13/19 19:57 - Orders/Labs/Meds Orders: Active Orders 24 hr Category Date Time Status CULTURE STREP A CONFIRMATION [RM] Stat Lab 03/13/19 20:00 Results STREP SCRN A RAPID W CULT CONF [RM] Stat Lab 03/13/19 20:00 Results Meds: Medications Discontinued Medications Generic Name Dose Route Start Last Admin Trade Name Dodie PRN Reason Stop Dose Admin Diphenhydramine HCl 50 mg 03/13/19 20:25 03/13/19 20:32 Benadryl PO 03/13/19 20:26 50 mg ONETIME ONE Administration Tramadol HCl 50 mg 03/13/19 20:25 03/13/19 20:32 Ultram PO 03/13/19 20:26 50 mg ONETIME ONE Administration Departure - Departure Time of Disposition: 20:28 Disposition: Home, Self-Care 01 Condition: Good Clinical Impression: Headache syndrome, End stage renal disease - Discharge Information Instructions: Migraine Headache, [id number] Referrals: PCP,None [Primary Care Provider] - (Establish and follow up with PCP) Forms: ED Department Discharge Additional Instructions: Establish a primary care physician and follow-up as needed. - Problem List & Annotations (1) Headache SNOMED Code(s): 00993840 Code(s): R51 - HEADACHE Status: Acute - Problem List Review Problem List Initiated/Reviewed/Updated: Yes - My Orders Last 24 Hours: My Active Orders 03/13/19 20:00 CULTURE STREP A CONFIRMATION [RM] Stat STREP SCRN A RAPID W CULT CONF [RM] Stat - Assessment/Plan Last 24 Hours: My Active Orders 03/13/19 20:00 CULTURE STREP A CONFIRMATION [RM] Stat STREP SCRN A RAPID W CULT CONF [RM] Stat Plan: Strep was negative. I declined to give her Dilaudid, reviewed your record at [facility] with it given Benadryl and Haldol. She declined Imitrex. I eventually give her 1 dose of tramadol orally and Benadryl 50 mg orally and advised to follow-up with PCP establish one in follow-up soon.
== END 2019-03-13 20:37 | disposition home or self-care (01) ==
LOC: FB.ED 19:57
DX: G44.89 Other headache syndrome (principal); I12.0 Hypertensive chronic kidney disease with stage 5 chronic kidney disease or end stage renal disease; E10.22 Type 1 diabetes mellitus with diabetic chronic kidney disease; N18.6 End stage renal disease; E10.43 Type 1 diabetes mellitus with diabetic autonomic (poly)neuropathy; K31.84 Gastroparesis; Z88.5 Allergy status to narcotic agent; Z88.0 Allergy status to penicillin; Z88.2 Allergy status to sulfonamides; Z88.8 Allergy status to other drugs, medicaments and biological substances; Z88.6 Allergy status to analgesic agent; Z88.1 Allergy status to other antibiotic agents; Z91.040 Latex allergy status; Z79.84 Long term (current) use of oral hypoglycemic drugs; Z99.2 Dependence on renal dialysis; Z79.899 Other long term (current) drug therapy
CPT/HCPCS: 87081; 87880-QW; 99283; A9270-GY

== ENCOUNTER 2019-03-15 23:04 | Emergency (ER) | payer MEDICAID ==
[2019-03-15] MEDS ORDERED: Acetaminophen/HYDROcodone 325-5 MG Tab PO ONE (23:34)
--- NOTE | 2019-03-15 23:34 | EDM.PDOC ---
ED HPI GENERAL MEDICAL PROBLEM - General Chief Complaint: Headache Stated Complaint: MIGRAINE Time Seen by Provider: 03/15/19 23:40 Source of Information: Reports: Patient - History of Present Illness INITIAL COMMENTS - FREE TEXT/NARRATIVE: Patient presented to the Ed because of headache,12/20 with associated but no vomiting. there is no associated fever or chills. - Related Data Allergies Allergy/AdvReac Type Severity Reaction Status Date / Time amoxicillin Allergy Difficulty Verified 03/15/19 23:20 Breathing azithromycin Allergy Rash Verified 03/15/19 23:20 fentanyl Allergy Hives Verified 03/15/19 23:20 ketorolac [From Toradol] Allergy Hives Verified 03/15/19 23:20 latex Allergy Rash Verified 03/15/19 23:20 metoclopramide [From Reglan] Allergy Hives Verified 03/15/19 23:20 Penicillins Allergy Difficulty Verified 03/15/19 23:20 Breathing Sulfa (Sulfonamide Allergy Hives Verified 03/15/19 23:20 Antibiotics) vancomycin Allergy Other Verified 03/15/19 23:20 Home Meds: Home Meds Insulin Aspart [NovoLOG] 1 dose SQ ASDIRECTED 12/16/18 [History] Insulin Glarg,Human.Rec.Analog [Lantus Solostar] 1 dose SQ ASDIRECTED 12/16/18 [ History] Atenolol 25 mg PO DAILY 01/19/19 [History] Acetaminophen/HYDROcodone [[place] 325-5 MG] 1 - 2 tab PO Q4H PRN #10 tab [Rx] Past Medical History HEENT History: Reports: None Other HEENT History: legally blind L eye Cardiovascular History: Reports: Heart Murmur, Hypertension Gastrointestinal 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 (See Below) (Diabetic gastroparesis) Genitourinary History: Reports: Dialysis Other Genitourinary History: Does peritoneal dialysis daily. 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 GAGER APPRENTICE History: Musculoskeletal History: Reports: Fracture Other Musculoskeletal History: hx fx L forearm Neurological History: Reports: Migraines Endocrine/Metabolic History: Reports: Diabetes, Type I Oncologic (Cancer) History: Reports: Uterine, Other (See Below) Other Oncologic History: oral CA, teeth removed - Past Surgical History HEENT Surgical History: Reports: Myringotomy w Tube(s), Oral Surgery GI Surgical History: Reports: Appendectomy, Cholecystectomy Female Surgical History: Reports: Section, Hysterectomy Musculoskeletal Surgical History: Reports: ORIF Other Surgical History Comment: Port placed. Peritoneal dialysis catheter place. Bilateral arm AV fistulas placed. 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) ED ROS GENERAL - Review of Systems Review Of Systems: See Below Constitutional: Reports: No Symptoms HEENT: Reports: No Symptoms Respiratory: Reports: No Symptoms Cardiovascular: Reports: No Symptoms Endocrine: Reports: No Symptoms GI/Abdominal: Reports: Nausea Musculoskeletal: Reports: No Symptoms Skin: Reports: No Symptoms Neurological: Reports: No Symptoms Psychiatric: Reports: No Symptoms - Physical Exam Exam: See Below Exam Limited By: No Limitations General Appearance: Alert, No Apparent Distress Eye Exam: Bilateral Eye: Normal Inspection Ears: Normal External Exam, Normal Canal, Hearing Grossly Normal Nose: Normal Inspection, Normal Mucosa, No Blood Throat/Mouth: Normal Inspection, Normal Lips, Normal Teeth Head Exam: Atraumatic, Normocephalic Neck: Normal Inspection, Non-Tender, Full Range of Motion Respiratory/Chest: No Respiratory Distress, Lungs Clear, Normal Breath Sounds Cardiovascular: Normal Peripheral Pulses, Regular Rate, Rhythm, No Edema GI/Abdominal: Normal Bowel Sounds, Non-Tender (Female) Exam: Normal External Exam, Normal Speculum Exam, Normal Bimanual Exam Rectal (Female) Exam: Normal Exam, Normal Rectal Tone Neuro Exam (Abbreviated): CN II-XII Intact Back Exam: Normal Inspection, Full Range of Motion Extremities: Normal Inspection, Normal Range of Motion Psychiatric: Normal Affect, Normal Mood Course - Vital Signs Text/Narrative:: norco 5 mg 2 po x1 with significant relief of her migraine. Last Recorded V/S: Last Vital Signs Temp 36.8 C 03/15/19 23:15 Pulse 98 03/15/19 23:15 Resp 20 03/15/19 23:15 BP 161/103 H 03/15/19 23:15 Pulse Ox 100 03/15/19 23:15 - Orders/Labs/Meds Meds: Medications Discontinued Medications Generic Name Dose Route Start Last Admin Trade Name Freq PRN Reason Stop Dose Admin Hydrocodone Bitart/Acetaminophen 2 tab 03/15/19 23:34 03/15/19 23:40 [place] 325-5 Mg PO 03/15/19 23:35 2 tab ONETIME ONE Administration Departure - Departure Time of Disposition: 11:30 Disposition: Home, Self-Care 01 Condition: Good Clinical Impression: Migraine - Discharge Information *PRESCRIPTION DRUG MONITORING PROGRAM REVIEWED*: No *COPY OF PRESCRIPTION DRUG MONITORING REPORT IN PATIENT RACHAEL: No Prescriptions: Acetaminophen/HYDROcodone [[place] 325-5 MG] 1 - 2 tab PO Q4H PRN #10 tab PRN Reason: Pain Instructions: Migraine Headache Referrals: PCP,None [Primary Care Provider] - Forms: ED Department Discharge Additional Instructions: please read discharge instructions on migraine noerco/5/325 , tale 1 tablet every 4-6 hours as needed for paim follow up as needed
== END 2019-03-15 23:45 | disposition home or self-care (01) ==
LOC: FB.ED 23:04
DX: G43.909 Migraine, unspecified, not intractable, without status migrainosus (principal); I10 Essential (primary) hypertension; E10.43 Type 1 diabetes mellitus with diabetic autonomic (poly)neuropathy; K31.84 Gastroparesis; Z79.4 Long term (current) use of insulin; Z79.899 Other long term (current) drug therapy; Z88.0 Allergy status to penicillin; Z88.1 Allergy status to other antibiotic agents; Z88.6 Allergy status to analgesic agent; Z88.8 Allergy status to other drugs, medicaments and biological substances; Z91.040 Latex allergy status
CPT/HCPCS: 99283; A9270

== ENCOUNTER 2019-03-19 21:35 | Emergency (ER) | payer MEDICAID ==
[2019-03-19] MEDS ORDERED: Ondansetron 4 MG Tab.DIS PO ONE (21:51)
[2019-03-19] MEDS ORDERED: Acetaminophen/oxyCODONE 325-5 MG Tab PO ONE (21:51)
[2019-03-19] MEDS ORDERED: Levofloxacin 250 MG Tab PO ONE (22:31)
--- NOTE | 2019-03-19 22:37 | EDM.PDOC ---
ED HPI GENERAL MEDICAL PROBLEM - General Stated Complaint: MIGRAINE; POPPED CYST Time Seen by Provider: 03/19/19 21:40 Source of Information: Reports: Patient History Limitations: Reports: No Limitations - History of Present Illness INITIAL COMMENTS - FREE TEXT/NARRATIVE: Patient is a 28 YO WF who c/o nasal congestion.frontal and maxillary headache for 4 days. denies having any fever or chills. - Related Data Allergies Allergy/AdvReac Type Severity Reaction Status Date / Time amoxicillin Allergy Difficulty Verified 03/15/19 23:20 Breathing azithromycin Allergy Rash Verified 03/15/19 23:20 fentanyl Allergy Hives Verified 03/15/19 23:20 ketorolac [From Toradol] Allergy Hives Verified 03/15/19 23:20 latex Allergy Rash Verified 03/15/19 23:20 metoclopramide [From Reglan] Allergy Hives Verified 03/15/19 23:20 Penicillins Allergy Difficulty Verified 03/15/19 23:20 Breathing Sulfa (Sulfonamide Allergy Hives Verified 03/15/19 23:20 Antibiotics) vancomycin Allergy Other Verified 03/15/19 23:20 Home Meds: Home Meds Insulin Aspart [NovoLOG] 1 dose SQ ASDIRECTED 12/16/18 [History] Insulin Glarg,Human.Rec.Analog [Lantus Solostar] 1 dose SQ ASDIRECTED 12/16/18 [ History] Atenolol 25 mg PO DAILY 01/19/19 [History] Acetaminophen/HYDROcodone [[place] 325-5 MG] 1 - 2 tab PO Q4H PRN #10 tab [Rx] levoFLOXacin [Levaquin] 250 mg PO DAILY #7 tab 03/19/19 [Rx] Past Medical History HEENT History: Reports: None Other HEENT History: legally blind L eye Cardiovascular History: Reports: Heart Murmur, Hypertension Gastrointestinal 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 (See Below) (Diabetic gastroparesis) Genitourinary History: Reports: Dialysis Other Genitourinary History: Does peritoneal dialysis daily. 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 CHIEF RESOURCE OFFICER History: Musculoskeletal History: Reports: Fracture Other Musculoskeletal History: hx fx L forearm Neurological History: Reports: Migraines Endocrine/Metabolic History: Reports: Diabetes, Type I Oncologic (Cancer) History: Reports: Uterine, Other (See Below) Other Oncologic History: oral CA, teeth removed - Past Surgical History HEENT Surgical History: Reports: Myringotomy w Tube(s), Oral Surgery GI Surgical History: Reports: Appendectomy, Cholecystectomy Female Surgical History: Reports: Section, Hysterectomy Musculoskeletal Surgical History: Reports: ORIF Other Surgical History Comment: Port placed. Peritoneal dialysis catheter place. Bilateral arm AV fistulas placed. 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) ED ROS GENERAL - Review of Systems Review Of Systems: See Below Constitutional: Reports: No Symptoms HEENT: Reports: No Symptoms Respiratory: Reports: No Symptoms Cardiovascular: Reports: No Symptoms Endocrine: Reports: No Symptoms GI/Abdominal: Reports: No Symptoms : Reports: No Symptoms Musculoskeletal: Reports: No Symptoms Skin: Reports: No Symptoms Neurological: Reports: No Symptoms Psychiatric: Reports: No Symptoms ED EXAM, GENERAL - Physical Exam Exam: See Below Exam Limited By: No Limitations General Appearance: Alert, No Apparent Distress Eye Exam: Bilateral Eye: PERRL Ears: Normal External Exam, Normal Canal Nose: Normal Inspection, Nasal Drainage Throat/Mouth: Normal Inspection, Normal Lips, Normal Teeth, Normal Gums, Normal Oropharynx, Normal Voice Head: Atraumatic, Normocephalic, Other (maxillary and frontal tenderness) Respiratory/Chest: No Respiratory Distress, Lungs Clear, Normal Breath Sounds Back Exam: Normal Inspection, Full Range of Motion Extremities: Normal Inspection, Normal Range of Motion Course - Orders/Labs/Meds Meds: Medications Discontinued Medications Generic Name Dose Route Start Last Admin Trade Name Dodie PRN Reason Stop Dose Admin Levofloxacin 250 mg 03/19/19 22:31 03/19/19 22:37 Levaquin PO 03/19/19 22:32 250 mg ONETIME ONE Administration Ondansetron HCl 4 mg 03/19/19 21:51 03/19/19 21:58 Zofran Odt PO 03/19/19 21:52 4 mg ONETIME ONE Administration Oxycodone/Acetaminophen 2 tab 03/19/19 21:51 03/19/19 21:58 Percocet 325-5 Mg PO 03/19/19 21:52 2 tab ONETIME ONE Administration Departure - Departure Time of Disposition: 22:35 Disposition: Home, Self-Care 01 Condition: Good Clinical Impression: Sinusitis, Headache syndrome - Discharge Information *PRESCRIPTION DRUG MONITORING PROGRAM REVIEWED*: No *COPY OF PRESCRIPTION DRUG MONITORING REPORT IN PATIENT RACHAEL: No Prescriptions: levoFLOXacin [Levaquin] 250 mg PO DAILY #7 tab Instructions: Sinusitis, Adult, [id number] Referrals: PCP,Unknown [Primary Care Provider] - Additional Instructions: please read discharge in sinusitis increase oral fluids levaquin 500 mg daily
== END 2019-03-19 22:42 | disposition home or self-care (01) ==
LOC: FB.ED 21:35
DX: J32.9 Chronic sinusitis, unspecified (principal); G44.89 Other headache syndrome; I10 Essential (primary) hypertension; E10.43 Type 1 diabetes mellitus with diabetic autonomic (poly)neuropathy; K31.84 Gastroparesis; Z79.4 Long term (current) use of insulin; Z88.5 Allergy status to narcotic agent; Z88.0 Allergy status to penicillin; Z88.2 Allergy status to sulfonamides; Z88.6 Allergy status to analgesic agent; Z88.1 Allergy status to other antibiotic agents; Z91.040 Latex allergy status; Z79.899 Other long term (current) drug therapy
CPT/HCPCS: 99282; A9270

== ENCOUNTER 2019-04-05 19:55 | Emergency (ER) | payer MEDICAID ==
--- NOTE | 2019-04-05 20:31 | EDM.PDOC ---
ED HPI GENERAL MEDICAL PROBLEM - General Chief Complaint: Headache Stated Complaint: MIGRAINE Time Seen by Provider: 04/05/19 20:31 Source of Information: Reports: Patient History Limitations: Reports: No Limitations - History of Present Illness INITIAL COMMENTS - FREE TEXT/NARRATIVE: Chronic episodic headache,usually after dialysis. Seen multiple times,usually wanting Dilaudid.Describes similar headache today,associated with nausea. Has ESRD. Seen at [facility] last week for Thrombosis headache Pain Score (Numeric/FACES): 6 - Related Data Allergies Allergy/AdvReac Type Severity Reaction Status Date / Time amoxicillin Allergy Difficulty Verified 04/05/19 21:00 Breathing azithromycin Allergy Rash Verified 04/05/19 21:00 fentanyl Allergy Hives Verified 04/05/19 21:00 ketorolac [From Toradol] Allergy Hives Verified 04/05/19 21:00 latex Allergy Rash Verified 04/05/19 21:00 metoclopramide [From Reglan] Allergy Hives Verified 04/05/19 21:00 Penicillins Allergy Difficulty Verified 04/05/19 21:00 Breathing Sulfa (Sulfonamide Allergy Hives Verified 04/05/19 21:00 Antibiotics) vancomycin Allergy Other Verified 04/05/19 21:00 Home Meds: Home Meds Insulin Aspart [NovoLOG] 1 dose SQ ASDIRECTED 12/16/18 [History] Insulin Glarg,Human.Rec.Analog [Lantus Solostar] 1 dose SQ ASDIRECTED 12/16/18 [ History] Atenolol 25 mg PO DAILY 01/19/19 [History] Acetaminophen/HYDROcodone [[place] 325-5 MG] 1 - 2 tab PO Q4H PRN #10 tab [Rx] levoFLOXacin [Levaquin] 250 mg PO DAILY #7 tab 03/19/19 [Rx] Past Medical History HEENT History: Reports: None Other HEENT History: legally blind L eye Cardiovascular History: Reports: Heart Murmur, Hypertension Gastrointestinal 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 (See Below) (Diabetic gastroparesis) Genitourinary History: Reports: Dialysis Other Genitourinary History: Does peritoneal dialysis daily. UPPER TRIMMER 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 UPPER TRIMMER History: Musculoskeletal History: Reports: Fracture Other Musculoskeletal History: hx fx L forearm Neurological History: Reports: Migraines Endocrine/Metabolic History: Reports: Diabetes, Type I Oncologic (Cancer) History: Reports: Uterine, Other (See Below) Other Oncologic History: oral CA, teeth removed - Past Surgical History HEENT Surgical History: Reports: Myringotomy w Tube(s), Oral Surgery GI Surgical History: Reports: Appendectomy, Cholecystectomy Female Surgical History: Reports: Section, Hysterectomy Musculoskeletal Surgical History: Reports: ORIF Other Surgical History Comment: Port placed. Peritoneal dialysis catheter place. Bilateral arm AV fistulas placed. 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 - Physical Exam Exam: Not Obtained Exam Limited By: No Limitations General Appearance: Alert Ears: Normal External Exam Nose: Normal Inspection Throat/Mouth: Normal Inspection Neck: Normal Inspection Respiratory/Chest: No Respiratory Distress Neuro Exam (Abbreviated): Alert, Oriented, CN II-XII Intact Back Exam: Normal Inspection Extremities: Normal Inspection Course - Vital Signs Last Recorded V/S: Last Vital Signs Temp 98.1 F 04/05/19 20:00 Pulse 96 04/05/19 20:00 Resp 16 04/05/19 20:00 BP 127/81 04/05/19 20:00 Pulse Ox 97 04/05/19 20:00 - Orders/Labs/Meds Meds: Medications Discontinued Medications Generic Name Dose Route Start Last Admin Trade Name Freq PRN Reason Stop Dose Admin Tramadol HCl 100 mg 04/05/19 20:32 04/05/19 20:36 Ultram PO 04/05/19 20:33 100 mg ONETIME ONE Administration Departure - Departure Time of Disposition: 20:31 Disposition: Home, Self-Care 01 Condition: Good Clinical Impression: Tension-type headache - Discharge Information Instructions: Recurrent Migraine Headache, Tramadol tablets Referrals: PCP,None [Primary Care Provider] - Forms: ED Department Discharge Care Plan Goals: Follow up as planned - Problem List & Annotations (1) ESRD (end stage renal disease) Status: Acute (2) HTN (hypertension) SNOMED Code(s): 21214055 Code(s): I10 - ESSENTIAL (PRIMARY) HYPERTENSION Status: Acute (3) Type 1 diabetes SNOMED Code(s): 60445564 Code(s): E10.9 - TYPE 1 DIABETES MELLITUS WITHOUT COMPLICATIONS Status: Acute (4) Headache SNOMED Code(s): 57489659 Code(s): R51 - HEADACHE Status: Acute - Problem List Review Problem List Initiated/Reviewed/Updated: Yes - Assessment/Plan Plan: I reviewed her record both at [facility] and Headache. She has no seen a neurologist,despite multiple encouragements and advise. I declined Dilaudid,as I feel this is the wrong approach to her Headache. I gave her 2 tabs of Tramadol instead,and she has a follow up appt with INO Nolasco at the Clinic tomorrow. Hopefully she gets a referral to Neurology to better control her headaches,rather than ER visits-this could be reserved for real emergencies.
[2019-04-05] MEDS ORDERED: traMADol 50 MG Tab PO ONE (20:32)
== END 2019-04-05 20:40 | disposition home or self-care (01) ==
LOC: FB.ED 19:55
DX: G44.209 Tension-type headache, unspecified, not intractable (principal); I12.0 Hypertensive chronic kidney disease with stage 5 chronic kidney disease or end stage renal disease; E10.22 Type 1 diabetes mellitus with diabetic chronic kidney disease; N18.6 End stage renal disease; E10.43 Type 1 diabetes mellitus with diabetic autonomic (poly)neuropathy; K31.84 Gastroparesis; Z88.0 Allergy status to penicillin; Z88.6 Allergy status to analgesic agent; Z88.1 Allergy status to other antibiotic agents; Z91.040 Latex allergy status; Z79.4 Long term (current) use of insulin; Z79.899 Other long term (current) drug therapy
CPT/HCPCS: 99282; A9270

== ENCOUNTER 2019-05-11 16:55 | Emergency (ER) | payer MEDICAID, MEDICARE ==
[2019-05-11] MEDS ORDERED: Acetaminophen/HYDROcodone 325-5 MG Tab PO ONE (19:08)
[2019-05-11] MEDS ORDERED: Promethazine 25 MG/ML SDV IM ONE (19:09)
--- NOTE | 2019-05-11 19:36 | EDM.PDOC ---
ED HPI GENERAL MEDICAL PROBLEM - General Chief Complaint: Headache Stated Complaint: MIGRAINE Time Seen by Provider: 05/11/19 19:00 Source of Information: Reports: Patient - History of Present Illness INITIAL COMMENTS - FREE TEXT/NARRATIVE: Pastient presented to the ED because of 3 day h/o headache nausea but no vomiting. Her headache is throbbing 5/10, denies any fever,chills or neck stiffness. She took her zofran ODT for nausea without any significant relief of her nausea. Posterior migraine Pain Score (Numeric/FACES): 9 - Related Data Allergies Allergy/AdvReac Type Severity Reaction Status Date / Time amoxicillin Allergy Difficulty Verified 05/11/19 18:50 Breathing azithromycin Allergy Rash Verified 05/11/19 18:50 fentanyl Allergy Hives Verified 05/11/19 18:50 ketorolac [From Toradol] Allergy Hives Verified 05/11/19 18:50 latex Allergy Rash Verified 05/11/19 18:50 metoclopramide [From Reglan] Allergy Hives Verified 05/11/19 18:50 Penicillins Allergy Difficulty Verified 05/11/19 18:50 Breathing Sulfa (Sulfonamide Allergy Hives Verified 05/11/19 18:50 Antibiotics) vancomycin Allergy Other Verified 05/11/19 18:50 Home Meds: Home Meds Insulin Aspart [NovoLOG] 5 dose SQ ASDIRECTED 12/16/18 [History] Insulin Glarg,Human.Rec.Analog [Lantus Solostar] 15 dose SQ BEDTIME 12/16/18 [ History] Atenolol 25 mg PO DAILY 01/19/19 [History] Past Medical History HEENT History: Reports: None Other HEENT History: legally blind L eye Cardiovascular History: Reports: Heart Murmur, Hypertension Gastrointestinal 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 (See Below) (Diabetic gastroparesis) Genitourinary History: Reports: Dialysis Other Genitourinary History: Does peritoneal dialysis daily. 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 [employer]ICE [employer]IDENT [employer] History: Musculoskeletal History: Reports: Fracture Other Musculoskeletal History: hx fx L forearm Neurological History: Reports: Migraines Endocrine/Metabolic History: Reports: Diabetes, Type I Oncologic (Cancer) History: Reports: Uterine, Other (See Below) Other Oncologic History: oral CA, teeth removed - Past Surgical History HEENT Surgical History: Reports: Myringotomy w Tube(s), Oral Surgery GI Surgical History: Reports: Appendectomy, Cholecystectomy Female Surgical History: Reports: Section, Hysterectomy Musculoskeletal Surgical History: Reports: ORIF Other Surgical History Comment: Port placed. Peritoneal dialysis catheter place. Bilateral arm AV fistulas placed. 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) ED ROS GENERAL - Review of Systems Review Of Systems: See Below Constitutional: Reports: No Symptoms HEENT: Reports: No Symptoms Respiratory: Reports: No Symptoms Cardiovascular: Reports: No Symptoms Endocrine: Reports: No Symptoms GI/Abdominal: Reports: No Symptoms : Reports: No Symptoms Musculoskeletal: Reports: No Symptoms Skin: Reports: No Symptoms Neurological: Reports: No Symptoms, Headache Psychiatric: Reports: No Symptoms - Physical Exam Exam: See Below Exam Limited By: No Limitations General Appearance: Alert, WD/WN, No Apparent Distress Eye Exam: Bilateral Eye: PERRL Ears: Normal External Exam, Normal Canal, Hearing Grossly Normal Nose: Normal Inspection, Normal Mucosa Throat/Mouth: Normal Inspection Head Exam: Atraumatic, Normocephalic Neck: Normal Inspection, Supple, Non-Tender, Full Range of Motion Respiratory/Chest: No Respiratory Distress, Lungs Clear, Normal Breath Sounds, No Accessory Muscle Use, Chest Non-Tender Cardiovascular: Normal Peripheral Pulses, Regular Rate, Rhythm, No Edema, No Gallop, No JVD, No Murmur, No Rub GI/Abdominal: Normal Bowel Sounds, Soft, Non-Tender, No Organomegaly Neuro Exam (Abbreviated): Alert, Oriented, CN II-XII Intact, Normal Cognition, Normal Gait, Normal Reflexes, No Motor/Sensory Deficits Course - Vital Signs Text/Narrative:: Phenergan 25 mg IM x1 [place] 5/325, 2 po x1 dose Last Recorded V/S: Last Vital Signs Temp 36.8 C 05/11/19 18:45 Pulse 88 05/11/19 18:45 Resp 18 05/11/19 18:45 BP 172/102 H 05/11/19 18:45 Pulse Ox 100 05/11/19 18:45 - Orders/Labs/Meds Meds: Medications Discontinued Medications Generic Name Dose Route Start Last Admin Trade Name Freq PRN Reason Stop Dose Admin Hydrocodone Bitart/Acetaminophen 2 tab 05/11/19 19:08 05/11/19 19:29 [place] 325-5 Mg PO 05/11/19 19:09 2 tab ONETIME ONE Administration Promethazine HCl 25 mg 05/11/19 19:09 05/11/19 19:29 Phenergan IM 05/11/19 19:10 25 mg ONETIME ONE Administration Departure - Departure Time of Disposition: 19:35 Disposition: Home, Self-Care 01 Condition: Good Clinical Impression: Migraine - Discharge Information Instructions: Acetaminophen; Hydrocodone tablets or capsules, Migraine Headache , [id number], Promethazine injection Referrals: Baldev Nina, PAKurtC [Primary Care Provider] - Forms: ED Department Discharge Additional Instructions: please read discharge instructions on migraine continue zofran odt 4 mg every 4 hours as needed for nausea follow up as needed
== END 2019-05-11 19:42 | disposition home or self-care (01) ==
LOC: FB.ED 16:55
DX: G43.909 Migraine, unspecified, not intractable, without status migrainosus (principal); E10.9 Type 1 diabetes mellitus without complications; I10 Essential (primary) hypertension; H54.40 Blindness, one eye, unspecified eye; Z88.1 Allergy status to other antibiotic agents; Z88.6 Allergy status to analgesic agent; Z88.2 Allergy status to sulfonamides; Z91.040 Latex allergy status; Z79.4 Long term (current) use of insulin; Z79.899 Other long term (current) drug therapy
CPT/HCPCS: 96372; 99283; A9270; J2550

== ENCOUNTER 2019-05-13 14:29 | Emergency (ER) | payer MEDICARE ==
[2019-05-13] MEDS ORDERED: diphenhydrAMINE 50 MG/ML SDV IM ONE (15:23)
--- NOTE | 2019-05-13 15:31 | EDM.PDOC ---
ED HPI GENERAL MEDICAL PROBLEM - General Chief Complaint: Headache Stated Complaint: MIGRAINE Time Seen by Provider: 05/13/19 15:00 Source of Information: Reports: Patient History Limitations: Reports: No Limitations - History of Present Illness INITIAL COMMENTS - FREE TEXT/NARRATIVE: c/o FLORES x 6d pt in ED 2d ago, given phenergan 50 mg IM and tabs of hc/apap says nothing has helped has had multiple neuro referrals in past, not f/u says she cannot eat d/w gastroparesis, will have a feeding tube placed later this month on peritoneal dialysis 8 hr/d x 4m which she likes a lot beter than hemodialysis took Aleve x 2 at 4a for FLORES, nothing in in the last 11h, Aleve did not help says she is on 3 BP meds, all of which she takes prn, she takes amlodipine in AM if inc'd BP, lisinopril in afternoon if inc'd BP, atenolol in evening if inc' d BP, some days takes not meds, says she has not taken all meds Migraine headache Pain Score (Numeric/FACES): 10 - Related Data Allergies Allergy/AdvReac Type Severity Reaction Status Date / Time amoxicillin Allergy Difficulty Verified 05/13/19 14:41 Breathing azithromycin Allergy Rash Verified 05/13/19 14:41 fentanyl Allergy Hives Verified 05/13/19 14:41 ketorolac [From Toradol] Allergy Hives Verified 05/13/19 14:41 latex Allergy Rash Verified 05/13/19 14:41 metoclopramide [From Reglan] Allergy Hives Verified 05/13/19 14:41 Penicillins Allergy Difficulty Verified 05/13/19 14:41 Breathing Sulfa (Sulfonamide Allergy Hives Verified 05/13/19 14:41 Antibiotics) vancomycin Allergy Other Verified 05/13/19 14:41 Home Meds: Home Meds Insulin Aspart [NovoLOG] 5 dose SQ ASDIRECTED 12/16/18 [History] Insulin Glarg,Human.Rec.Analog [Lantus Solostar] 15 dose SQ BEDTIME 12/16/18 [ History] Atenolol 25 mg PO DAILY 01/19/19 [History] Past Medical History HEENT History: Reports: None Other HEENT History: legally blind L eye Cardiovascular History: Reports: Blood Clots/VTE/DVT, Heart Murmur, Hypertension Gastrointestinal 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 (See Below) Other Gastrointestinal History: gastroparesis Genitourinary History: Reports: Dialysis Other Genitourinary History: Does peritoneal dialysis daily. 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 History: Musculoskeletal History: Reports: Fracture Other Musculoskeletal History: hx fx L forearm Neurological History: Reports: Migraines Endocrine/Metabolic History: Reports: Diabetes, Type I Oncologic (Cancer) History: Reports: Uterine, Other (See Below) Other Oncologic History: oral CA, teeth removed - Past Surgical History Head Surgeries/Procedures: Reports: None HEENT Surgical History: Reports: Myringotomy w Tube(s), Oral Surgery GI Surgical History: Reports: Appendectomy, Cholecystectomy, EGD Female Surgical History: Reports: Section, Hysterectomy Musculoskeletal Surgical History: Reports: ORIF Social & Family History - Family History Family Medical History: Noncontributory - Tobacco Use Smoking Status *Q: Current Every Day Smoker Years of Tobacco use: 10 Packs/Tins Daily: 0.5 - Caffeine Use Caffeine Use: Reports: None - Recreational Drug Use Recreational Drug Use: No - Living Situation & Occupation Living situation: Reports: 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) ED ROS GENERAL - Review of Systems Review Of Systems: See Below Constitutional: Reports: No Symptoms HEENT: Reports: No Symptoms Respiratory: Reports: No Symptoms Cardiovascular: Reports: No Symptoms Endocrine: Reports: No Symptoms GI/Abdominal: Reports: Nausea : Reports: No Symptoms Musculoskeletal: Reports: No Symptoms Skin: Reports: No Symptoms Neurological: Reports: Headache, Other (says both front and back of head hurt) Psychiatric: Reports: No Symptoms Hematologic/Lymphatic: Reports: No Symptoms Immunologic: Reports: No Symptoms - Physical Exam Exam: See Below Exam Limited By: Other (nonill, lights on in room, declined to have them off, good eye contact, talks readily, walks and moves without difficulty, no distress , nonill, no apparent GI upset) General Appearance: Alert, WD/WN, No Apparent Distress Nose: Normal Inspection Throat/Mouth: Normal Inspection, Normal Oropharynx, Other (edentulous) Head Exam: Atraumatic, Normocephalic Neck: Normal Inspection, Supple, Non-Tender, Full Range of Motion. No: Lymphadenopathy (R), Lymphadenopathy (L) Respiratory/Chest: No Respiratory Distress, Lungs Clear, Normal Breath Sounds, No Accessory Muscle Use, Chest Non-Tender Cardiovascular: Regular Rate, Rhythm, No Edema, No JVD GI/Abdominal: Soft, Non-Tender, No Distention Neuro Exam (Abbreviated): Alert, Oriented, CN II-XII Intact, Normal Cognition, No Motor/Sensory Deficits Back Exam: Normal Inspection, Full Range of Motion, NT Extremities: Normal Inspection, Normal Range of Motion, Non-Tender, No Pedal Edema Psychiatric: Normal Affect, Normal Mood Skin Exam: Warm, Dry, Intact, Normal Color, No Rash Course - Vital Signs Last Recorded V/S: Last Vital Signs Temp 36.9 C 05/13/19 14:39 Pulse 89 05/13/19 14:39 Resp 18 05/13/19 14:39 BP 199/104 H 05/13/19 14:39 Pulse Ox 100 05/13/19 14:39 - Orders/Labs/Meds Orders: Active Orders 24 hr Category Date Time Status Prochlorperazine [Compazine] Med 05/13/19 15:24 Once 10 mg IM ONETIME ONE diphenhydrAMINE [Benadryl] Med 05/13/19 15:23 Once 50 mg IM ONETIME ONE Medication Orders Diphenhydramine HCl (Benadryl) 50 mg IM ONETIME ONE Stop: 05/13/19 15:24 Prochlorperazine Edisylate (Compazine) 10 mg IM ONETIME ONE Stop: 05/13/19 15:25 Meds: Medications Generic Name Dose Route Start Last Admin Trade Name Amilcarq PRN Reason Stop Dose Admin Diphenhydramine HCl 50 mg 05/13/19 15:23 Benadryl IM 05/13/19 15:24 ONETIME ONE Prochlorperazine Edisylate 10 mg 05/13/19 15:24 Compazine IM 05/13/19 15:25 ONETIME ONE - Re-Assessments/Exams Free Text/Narrative Re-Assessment/Exam: 05/13/19 16:06 pt declined multiple meds including Benadryl, Compazine, Phenergan, ibuprofen, APAP, Solu-Medrol, Zofran ODT, Vistaril, clonidine pt declined meds for BP, strongly encouraged to take her BP meds when she got home would not take Zofan ODT, says "I have that at home" would not take clondine, says "I have that at home" when asked about taking other meds for her BP, she declined 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 pt asked re tramadol, advised that she would need to discuss controlled meds with her PCP MP[facility] consulted, however website not working after being offered Benadryl 50 mg IM and Compazine 10 mg IM, which the RN brought to her room, she declined both and said she wanted to leave I spoke with her further on 2 occasions and was unable to get her to agree to other meds Departure - Departure Time of Disposition: 15:53 Disposition: Home, Self-Care 01 Condition: Good Clinical Impression: Migraine - Discharge Information *PRESCRIPTION DRUG MONITORING PROGRAM REVIEWED*: Not Applicable *COPY OF PRESCRIPTION DRUG MONITORING REPORT IN PATIENT RACHAEL: Not Applicable Instructions: Migraine Headache Forms: ED Department Discharge Additional Instructions: Take a Zofran ODT, as needed, for nausea every 4-6 hours prior to taking oral pills. Take Aleve x 2 and acetaminophen 500 mg 2 tabs when you get home. Continue with the acetaminophen 500 mg 2 tabs 4 times a day. Take medication for you blood pressure when you get home. Use ice for 10 minutes every 2 hours as needed. See your doctor in the next few days for further recommendations. - My Orders Last 24 Hours: My Active Orders 05/13/19 15:23 diphenhydrAMINE [Benadryl] 50 mg IM ONETIME ONE 05/13/19 15:24 Prochlorperazine [Compazine] 10 mg IM ONETIME ONE - Assessment/Plan Last 24 Hours: My Active Orders 05/13/19 15:23 diphenhydrAMINE [Benadryl] 50 mg IM ONETIME ONE 05/13/19 15:24 Prochlorperazine [Compazine] 10 mg IM ONETIME ONE
[2019-05-13] MEDS: Prochlorperazine 10 MG/2 ML SDV IM ONE ×2 (15:35→16:09)
== END 2019-05-13 16:00 | disposition home or self-care (01) ==
LOC: FB.ED 14:29
DX: G43.909 Migraine, unspecified, not intractable, without status migrainosus (principal); I10 Essential (primary) hypertension; E10.43 Type 1 diabetes mellitus with diabetic autonomic (poly)neuropathy; K31.84 Gastroparesis; H54.40 Blindness, one eye, unspecified eye; Z86.718 Personal history of other venous thrombosis and embolism; F17.210 Nicotine dependence, cigarettes, uncomplicated; Z88.0 Allergy status to penicillin; Z88.1 Allergy status to other antibiotic agents; Z88.5 Allergy status to narcotic agent; Z88.6 Allergy status to analgesic agent; Z88.8 Allergy status to other drugs, medicaments and biological substances; Z88.2 Allergy status to sulfonamides; Z91.040 Latex allergy status; Z79.4 Long term (current) use of insulin; Z79.899 Other long term (current) drug therapy
CPT/HCPCS: 99283

== ENCOUNTER 2019-05-26 22:25 | Emergency (ER) | payer MEDICARE ==
[2019-05-26] MEDS ORDERED: HYDROmorphone 2 MG/ML SDV IM ONE (22:53)
--- NOTE | 2019-05-26 22:56 | EDM.PDOC ---
ED HPI GENERAL MEDICAL PROBLEM - General Chief Complaint: General Stated Complaint: FELL ON ICE Time Seen by Provider: 05/26/19 22:54 Source of Information: Reports: Patient History Limitations: Reports: No Limitations - History of Present Illness INITIAL COMMENTS - FREE TEXT/NARRATIVE: Luis slipped on ice and fell on her buttock while trying to retrieve her puppy.Endorses severe tail bone pain.Unable to sit. No other injuries. Has CKD, DM1,Chronic Daily headaches ribcage, tailbone, lower back Pain Score (Numeric/FACES): 9 - Related Data Allergies Allergy/AdvReac Type Severity Reaction Status Date / Time amoxicillin Allergy Difficulty Verified 05/13/19 14:41 Breathing azithromycin Allergy Rash Verified 05/13/19 14:41 fentanyl Allergy Hives Verified 05/13/19 14:41 ketorolac [From Toradol] Allergy Hives Verified 05/13/19 14:41 latex Allergy Rash Verified 05/13/19 14:41 metoclopramide [From Reglan] Allergy Hives Verified 05/13/19 14:41 Penicillins Allergy Difficulty Verified 05/13/19 14:41 Breathing Sulfa (Sulfonamide Allergy Hives Verified 05/13/19 14:41 Antibiotics) vancomycin Allergy Other Verified 05/13/19 14:41 Home Meds: Home Meds Insulin Aspart [NovoLOG] 5 dose SQ ASDIRECTED 12/16/18 [History] Insulin Glarg,Human.Rec.Analog [Lantus Solostar] 15 dose SQ BEDTIME 12/16/18 [ History] Atenolol 25 mg PO DAILY 01/19/19 [History] Past Medical History HEENT History: Reports: None Other HEENT History: legally blind L eye Cardiovascular History: Reports: Blood Clots/VTE/DVT, Heart Murmur, Hypertension Gastrointestinal 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 (See Below) Other Gastrointestinal History: gastroparesis Genitourinary History: Reports: Dialysis Other Genitourinary History: Does peritoneal dialysis daily. 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 MEDICAL RECORDS TECHNICIAN History: Musculoskeletal History: Reports: Fracture Other Musculoskeletal History: hx fx L forearm Neurological History: Reports: Migraines Endocrine/Metabolic History: Reports: Diabetes, Type I Oncologic (Cancer) History: Reports: Uterine, Other (See Below) Other Oncologic History: oral CA, teeth removed - Past Surgical History Head Surgeries/Procedures: Reports: None HEENT Surgical History: Reports: Myringotomy w Tube(s), Oral Surgery GI Surgical History: Reports: Appendectomy, Cholecystectomy, EGD Female Surgical History: Reports: Section, Hysterectomy Musculoskeletal Surgical History: Reports: ORIF Social & Family History - Family History Family Medical History: Noncontributory - Tobacco Use Smoking Status *Q: Current Every Day Smoker Years of Tobacco use: 10 Packs/Tins Daily: 0.5 - Caffeine Use Caffeine Use: Reports: None - Living Situation & Occupation Living situation: Reports: 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 ED EXAM, GENERAL - Physical Exam Exam: See Below Exam Limited By: No Limitations General Appearance: Alert Back Exam: Normal Inspection, CVA Tenderness (R), Vertebral Tenderness (Sacral spine/coccyx) Neurological: Alert, Oriented Course - Vital Signs Last Recorded V/S: Last Vital Signs Temp 98.1 F 05/26/19 22:30 Pulse 94 05/26/19 22:30 Resp 14 05/26/19 22:30 BP 164/104 H 05/26/19 22:30 Pulse Ox 100 05/26/19 22:30 - Orders/Labs/Meds Orders: Active Orders 24 hr Category Date Time Status HYDROmorphone [Dilaudid] Med 05/26/19 22:53 Once 1 mg IM ONETIME ONE Departure - Departure Time of Disposition: 22:55 Disposition: Home, Self-Care 01 Condition: Good Clinical Impression: Back injury - Discharge Information Referrals: PCP,None [Primary Care Provider] - Sepsis Event Note - Evaluation Sepsis Screening Result: No Definite Risk - Focused Exam Vital Signs: Vital Signs Temp Pulse Resp BP Pulse Ox 05/26/19 22:30 98.1 F 94 14 164/104 H 100 Date Exam was Performed: 05/26/19 Time Exam was Performed: 22:53 - Problem List & Annotations (1) Back injury SNOMED Code(s): 896210205 Code(s): S39.92XA - UNSPECIFIED INJURY OF LOWER BACK, INITIAL ENCOUNTER Status: Acute Current Visit: Yes Qualifiers: Encounter type: initial encounter Qualified Code(s): S39.92XA - Unspecified injury of lower back, initial encounter - Problem List Review Problem List Initiated/Reviewed/Updated: Yes - My Orders Last 24 Hours: My Active Orders 05/26/19 22:53 HYDROmorphone [Dilaudid] 1 mg IM ONETIME ONE - Assessment/Plan Last 24 Hours: My Active Orders 05/26/19 22:53 HYDROmorphone [Dilaudid] 1 mg IM ONETIME ONE Plan: Ice. Rest. Dilaudid 1 mg IM
== END 2019-05-26 23:06 | disposition home or self-care (01) ==
LOC: FB.ED 22:25
DX: S39.92XA Unspecified injury of lower back, initial encounter (principal); E10.22 Type 1 diabetes mellitus with diabetic chronic kidney disease; I12.9 Hypertensive chronic kidney disease with stage 1 through stage 4 chronic kidney disease, or unspecified chronic kidney disease; N18.9 Chronic kidney disease, unspecified; E10.43 Type 1 diabetes mellitus with diabetic autonomic (poly)neuropathy; K31.84 Gastroparesis; H54.8 Legal blindness, as defined in USA; F17.210 Nicotine dependence, cigarettes, uncomplicated; Z88.0 Allergy status to penicillin; Z88.1 Allergy status to other antibiotic agents; Z91.040 Latex allergy status; Z88.5 Allergy status to narcotic agent; Z88.6 Allergy status to analgesic agent; Z88.8 Allergy status to other drugs, medicaments and biological substances; Z88.2 Allergy status to sulfonamides; Z79.4 Long term (current) use of insulin; Z79.899 Other long term (current) drug therapy; W00.0XXA Fall on same level due to ice and snow, initial encounter; Y93.89 Activity, other specified
CPT/HCPCS: 96372; 99283; J1170

== ENCOUNTER 2019-06-04 22:23 | Emergency (ER) | payer MEDICARE ==
--- NOTE | 2019-06-04 22:51 | EDM.PDOC ---
ED HPI GENERAL MEDICAL PROBLEM - General Chief Complaint: Genitourinary Problem Stated Complaint: ADDIEEY BLADDER INFECTION Time Seen by Provider: 06/04/19 22:35 Source of Information: Reports: Patient History Limitations: Reports: No Limitations - History of Present Illness INITIAL COMMENTS - FREE TEXT/NARRATIVE: 28-year-old female with history of hypertension, diabetes mellitus and end- stage renal disease on peritoneal dialysis who reports that she has been treated with ciprofloxacin for a urinary tract infection for the past 4 days ( she has 1 more day of treatment) and she reports that her symptoms seem to be worsening rather than improving and that she has a worsening burning with urination and worsening frequency and also bilateral mid back pain. She reports her pain as a 10/10. She has had no nausea or vomiting. She has noticed no blood in her urine. Feel that she had a fever yesterday but none today. She has been able to take liquids well. She also reports that at 5 a.m., she awoke with a frontal headache that has progressively worsened through the day and is sharp and throbbing and what she feels is her typical migraine headache. There is no photophobia. There is some photophobia. She has had no nausea or vomiting. The pain doesn't radiate. She rates this pain as a 9/10. She has no neck stiffness. There are no other associated signs or symptoms. There are no other modifying factors. Onset: Other (UTI symptoms for the past 6 days. 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 Treatments Bladder/Flank Pain Score (Numeric/FACES): 10 - Related Data Allergies Allergy/AdvReac Type Severity Reaction Status Date / Time amoxicillin Allergy Difficulty Verified 06/04/19 22:39 Breathing azithromycin Allergy Rash Verified 06/04/19 22:39 fentanyl Allergy Hives Verified 06/04/19 22:39 ketorolac [From Toradol] Allergy Hives Verified 06/04/19 22:39 latex Allergy Rash Verified 06/04/19 22:39 metoclopramide [From Reglan] Allergy Hives Verified 06/04/19 22:39 Penicillins Allergy Difficulty Verified 06/04/19 22:39 Breathing Sulfa (Sulfonamide Allergy Hives Verified 06/04/19 22:39 Antibiotics) vancomycin Allergy Other Verified 06/04/19 22:39 Home Meds: Home Meds Insulin Aspart [NovoLOG] 5 dose SQ ASDIRECTED 12/16/18 [History] Insulin Glarg,Human.Rec.Analog [Lantus Solostar] 15 dose SQ BEDTIME 12/16/18 [ History] atenoloL [Atenolol] 25 mg PO DAILY 01/19/19 [History] Cephalexin [Keflex] 500 mg PO TID 10 Days #30 capsule 06/04/19 [Rx] Ciprofloxacin HCl [Cipro] 500 mg PO DAILY 06/04/19 [History] Past Medical History Other HEENT History: legally blind L eye Cardiovascular History: Reports: Blood Clots/VTE/DVT, Heart Murmur, Hypertension Gastrointestinal 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 (See Below) Other Gastrointestinal History: gastroparesis Genitourinary History: Reports: Dialysis, Peritoneal Other Genitourinary History: Does peritoneal dialysis daily. 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: Musculoskeletal History: Reports: Fracture Other Musculoskeletal History: hx fx L forearm Neurological History: Reports: Migraines Endocrine/Metabolic History: Reports: Diabetes, Type I Oncologic (Cancer) History: Reports: Uterine, Other (See Below) Other Oncologic History: oral CA, teeth removed - Past Surgical History HEENT Surgical History: Reports: Myringotomy w Tube(s), Oral Surgery GI Surgical History: Reports: Appendectomy, Cholecystectomy, EGD Female Surgical History: Reports: Section, Hysterectomy Musculoskeletal Surgical History: Reports: ORIF Social & Family History - Tobacco Use Smoking Status *Q: Current Every Day Smoker - Caffeine Use Caffeine Use: Reports: None - Alcohol Use Alcohol Use History: No - Living Situation & Occupation Living situation: Reports: , with Spouse Occupation: Unemployed ED ROS GENERAL - Review of Systems Review Of Systems: See Below Constitutional: Reports: Fever (Reported fever), Chills HEENT: Reports: No Symptoms Respiratory: Reports: No Symptoms Cardiovascular: Reports: No Symptoms GI/Abdominal: Reports: Abdominal Pain ("Bladder pain") : Reports: Dysuria, Frequency, Urgency Musculoskeletal: Reports: Back Pain Skin: Reports: No Symptoms Neurological: Reports: Headache Hematologic/Lymphatic: Reports: No Symptoms Immunologic: Reports: No Symptoms ED EXAM, RENAL/ - Physical Exam Exam: See Below Exam Limited By: No Limitations General Appearance: Alert, WD/WN, No Apparent Distress Eye Exam: Bilateral Eye: EOMI, Normal Inspection Ears: Normal External Exam, Hearing Grossly Normal Nose: Normal Inspection, Normal Mucosa, No Blood Throat/Mouth: Normal Inspection, Normal Oropharynx, Normal Voice, No Airway Compromise Head: Atraumatic, Normocephalic Neck: Normal Inspection, Supple, Non-Tender, Full Range of Motion Respiratory/Chest: No Respiratory Distress, Lungs Clear, Normal Breath Sounds, No Accessory Muscle Use, Chest Non-Tender Cardiovascular: Normal Peripheral Pulses, Regular Rate, Rhythm, No Murmur GI/Abdominal: Normal Bowel Sounds, Soft, No Mass, Tender (Over suprapubic area, mild). No: Guarding, Rebound Back Exam: Normal Inspection, Full Range of Motion, CVA Tenderness (R) (Mild), CVA Tenderness (L) (Mild) Extremities: Normal Inspection, Normal Range of Motion, Non-Tender, No Pedal Edema, Normal Capillary Refill Neurological: Alert, Oriented, CN II-XII Intact, Normal Cognition, No Motor/ Sensory Deficits Psychiatric: Normal Affect Skin Exam: Warm, Dry, Intact, Normal Color, No Rash Course - Vital Signs Last Recorded V/S: Last Vital Signs Temp 36.7 C 06/04/19 23:33 Pulse 97 06/04/19 23:33 Resp 18 06/04/19 23:33 BP 182/97 H 06/04/19 23:33 Pulse Ox 100 06/04/19 23:33 - Orders/Labs/Meds Orders: Active Orders 24 hr Category Date Time Status CULTURE URINE [RM] Stat Lab 06/04/19 22:30 Received Labs: Laboratory Tests 06/04/19 Range/Units 22:30 Urine Color Yellow (YELLOW) Urine Appearance Slightly cloudy (CLEAR) Urine pH 7.0 H (5.0-6.5) Ur Specific [place] 1.005 L (1.010-1.025) Urine Protein 500 H (NEGATIVE) mg/dL Urine Glucose (UA) >1000 H (NORMAL) mg/dL Urine Ketones 15 H (NEGATIVE) mg/dL Urine Occult Blood Moderate H (NEGATIVE) Urine Nitrite Negative (NEGATIVE) Urine Bilirubin Negative (NEGATIVE) Urine Urobilinogen Normal (NEGATIVE) mg/dL Ur Leukocyte Esterase Moderate H (NEGATIVE) Urine RBC 0-5 (0-5) Urine WBC 10-20 H (0-5) Ur Squamous Epith Cells Many H (NS,R,O) Urine Bacteria Moderate H (NS) Meds: Medications Discontinued Medications Generic Name Dose Route Start Last Admin Trade Name Amilcarq PRN Reason Stop Dose Admin Cephalexin 500 mg 06/04/19 23:27 06/04/19 23:55 Keflex PO 06/04/19 23:28 Not Given ONETIME ONE Lorazepam 1 mg 06/04/19 22:56 06/04/19 23:17 Ativan IM 06/04/19 22:57 Not Given ONETIME ONE Promethazine HCl 25 mg 06/04/19 22:56 06/04/19 23:18 Phenergan IM 06/04/19 22:57 Not Given ONETIME ONE Tramadol HCl 100 mg 06/04/19 23:25 06/04/19 23:31 Ultram PO 06/04/19 23:26 100 mg ONETIME ONE Administration - Re-Assessments/Exams Free Text/Narrative Re-Assessment/Exam: 06/04/19 23:30: Patient with urinary symptoms and a urine that appears to have infection. I did send the urine for culture. She is currently on ciprofloxacin and I would switch her to 500 mg by mouth 3 times a day. She tells me that she does not want to take this medication now but she would want to run it by her "kidney specialist" before she would take it. For her migraine headache, I have given her tramadol 100 mg by mouth. I had offered her other medications begin ( Compazine, Phenergan, Ativan) and she tells me that she cannot take any of these because of adverse reactions. She should follow-up with her doctor. Departure - Departure Time of Disposition: 23:40 Disposition: Home, Self-Care 01 Condition: Good Clinical Impression: Hypertension, uncontrolled UTI (urinary tract infection) Qualifiers: Urinary tract infection type: site unspecified Hematuria presence: without hematuria Qualified Code(s): N39.0 - Urinary tract infection, site not specified Migraine headache Qualifiers: Migraine type: unspecified Status migrainosus presence: without status migrainosus Intractability: not intractable Qualified Code(s): G43.909 - Migraine, unspecified, not intractable, without status migrainosus - Discharge Information Prescriptions: Cephalexin [Keflex] 500 mg PO TID 10 Days #30 capsule Instructions: Urinary Tract Infection, Adult, [id number], Recurrent Migraine Headache, [id number] Referrals: PCP,None [Primary Care Provider] - Forms: ED Department Discharge Additional Instructions: You appear to still have a urinary tract infection. It appears that the ciprofloxacin is not treating the infection adequately. I have recommended Keflex 500 mg 3 times daily for the next 10 days. I have sent a prescription to your pharmacy. You should stop the ciprofloxacin and start this medication. You should take probiotics or eat yogurt daily while you are on the antibiotics. You also appear to have had a typical migraine headache for you. Increase your fluid intake. Rest. Follow-up with your primary doctor about the above and also about your blood pressure. Back to the emergency department for high fever, vomiting or any other concerning sign or symptom. Sepsis Event Note - Focused Exam Vital Signs: Vital Signs Temp Pulse Resp BP Pulse Ox 06/04/19 23:33 36.7 C 97 18 182/97 H 100 06/04/19 22:40 36.9 C 90 16 187/91 H 100 Date Exam was Performed: 06/05/19 Time Exam was Performed: 00:05 - My Orders Last 24 Hours: My Active Orders 06/04/19 22:30 CULTURE URINE [RM] Stat - Assessment/Plan Last 24 Hours: My Active Orders 06/04/19 22:30 CULTURE URINE [RM] Stat
[2019-06-04] MEDS: Promethazine 25 MG/ML SDV IM ONE ×2 (23:16→23:18)
[2019-06-04] MEDS: LORazepam 2 MG/ML SDV IM ONE ×2 (23:16→23:17)
[2019-06-04] MEDS ORDERED: traMADol 50 MG Tab PO ONE (23:25)
[2019-06-04] MEDS ORDERED: Cephalexin 500 MG Cap PO ONE (23:27)
== END 2019-06-04 23:47 | disposition home or self-care (01) ==
LOC: FB.ED 22:23
DX: N39.0 Urinary tract infection, site not specified (principal); G43.909 Migraine, unspecified, not intractable, without status migrainosus; E10.22 Type 1 diabetes mellitus with diabetic chronic kidney disease; I12.0 Hypertensive chronic kidney disease with stage 5 chronic kidney disease or end stage renal disease; N18.6 End stage renal disease; F17.200 Nicotine dependence, unspecified, uncomplicated; E10.43 Type 1 diabetes mellitus with diabetic autonomic (poly)neuropathy; H54.8 Legal blindness, as defined in USA; K31.84 Gastroparesis; Z88.0 Allergy status to penicillin; Z88.1 Allergy status to other antibiotic agents; Z88.2 Allergy status to sulfonamides; Z88.8 Allergy status to other drugs, medicaments and biological substances; Z88.6 Allergy status to analgesic agent; Z91.040 Latex allergy status; Z99.2 Dependence on renal dialysis; Z79.4 Long term (current) use of insulin; Z79.899 Other long term (current) drug therapy
CPT/HCPCS: 81001; 87086; 87088; 99284; A9270-GY; J2060; J2550

== ENCOUNTER 2019-09-13 17:37 | Emergency (ER) | payer MEDICARE, MEDICAID ==
[2019-09-13] MEDS ORDERED: traMADol 50 MG Tab PO ONE (18:18)
[2019-09-13] MEDS ORDERED: Acetaminophen 500 MG Tab PO ONE (18:25)
--- NOTE | 2019-09-13 18:25 | EDM.PDOC ---
ED HPI GENERAL MEDICAL PROBLEM - General Chief Complaint: Abdominal Pain Stated Complaint: L SIDE ABD PAIN Time Seen by Provider: 09/13/19 17:40 Source of Information: Reports: Patient History Limitations: Reports: No Limitations - History of Present Illness INITIAL COMMENTS - FREE TEXT/NARRATIVE: Patient presented to the ED because of left adnexal pain. the pain is sharp,5/ 10. there is no associated N/V,changes in bowel movement or urinary symptoms. - Related Data Allergies Allergy/AdvReac Type Severity Reaction Status Date / Time amoxicillin Allergy Difficulty Verified 06/04/19 22:39 Breathing azithromycin Allergy Rash Verified 06/04/19 22:39 fentanyl Allergy Hives Verified 06/04/19 22:39 ketorolac [From Toradol] Allergy Hives Verified 06/04/19 22:39 latex Allergy Rash Verified 06/04/19 22:39 metoclopramide [From Reglan] Allergy Hives Verified 06/04/19 22:39 Penicillins Allergy Difficulty Verified 06/04/19 22:39 Breathing Sulfa (Sulfonamide Allergy Hives Verified 06/04/19 22:39 Antibiotics) vancomycin Allergy Other Verified 06/04/19 22:39 Home Meds: Home Meds Insulin Aspart [NovoLOG] 5 dose SQ ASDIRECTED 12/16/18 [History] Insulin Glarg,Human.Rec.Analog [Lantus Solostar] 15 dose SQ BEDTIME 12/16/18 [ History] atenoloL [Atenolol] 25 mg PO DAILY 01/19/19 [History] Cephalexin [Keflex] 500 mg PO TID 10 Days #30 capsule 06/04/19 [Rx] Ciprofloxacin HCl [Cipro] 500 mg PO DAILY 06/04/19 [History] traMADol [Ultram] 100 mg PO Q8H PRN #15 tab 09/13/19 [Rx] Past Medical History HEENT History: Reports: None Other HEENT History: legally blind L eye Cardiovascular History: Reports: Blood Clots/VTE/DVT, Heart Murmur, Hypertension Gastrointestinal 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 (See Below) Other Gastrointestinal History: gastroparesis Genitourinary History: Reports: Dialysis, Peritoneal Other Genitourinary History: Does peritoneal dialysis daily. 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 History: Musculoskeletal History: Reports: Fracture Other Musculoskeletal History: hx fx L forearm Neurological History: Reports: Migraines Endocrine/Metabolic History: Reports: Diabetes, Type I Oncologic (Cancer) History: Reports: Uterine, Other (See Below) Other Oncologic History: oral CA, teeth removed - Past Surgical History HEENT Surgical History: Reports: Myringotomy w Tube(s), Oral Surgery GI Surgical History: Reports: Appendectomy, Cholecystectomy, EGD Female Surgical History: Reports: Section, Hysterectomy Musculoskeletal Surgical History: Reports: ORIF Social & Family History - Family History Family Medical History: Noncontributory - Caffeine Use Caffeine Use: Reports: None - Living Situation & Occupation Living situation: Reports: , with Spouse Occupation: Unemployed ED ROS GENERAL - Review of Systems Review Of Systems: See Below Constitutional: Reports: No Symptoms HEENT: Reports: No Symptoms Respiratory: Reports: No Symptoms Cardiovascular: Reports: No Symptoms Endocrine: Reports: No Symptoms GI/Abdominal: Reports: No Symptoms : Reports: Other (left adnexal pain) Musculoskeletal: Reports: No Symptoms Skin: Reports: No Symptoms Neurological: Reports: No Symptoms Psychiatric: Reports: No Symptoms ED EXAM, GI/ABD - Physical Exam Exam: See Below Exam Limited By: No Limitations General Appearance: Alert, No Apparent Distress Ears: Normal External Exam, Normal Canal Nose: Normal Inspection, Normal Mucosa Throat/Mouth: Normal Inspection, Normal Lips Head: Atraumatic, Normocephalic Neck: Normal Inspection, Supple, Non-Tender Respiratory/Chest: No Respiratory Distress, Lungs Clear, Normal Breath Sounds Cardiovascular: Normal Peripheral Pulses, Regular Rate, Rhythm, No Edema, No Gallop GI/Abdominal Exam: Normal Bowel Sounds, Soft, Non-Tender, No Organomegaly, Other (keft adnexal tenderness) Course - Vital Signs Text/Narrative:: pelvic US-see result tramadol 100 mg with tylenol 1000 mg po x1 Last Recorded V/S: Last Vital Signs Temp 36.8 C 09/13/19 17:37 Pulse 99 09/13/19 17:37 Resp 16 09/13/19 17:37 BP 185/94 H 09/13/19 17:37 Pulse Ox 100 09/13/19 17:37 - Orders/Labs/Meds Meds: Medications Discontinued Medications Generic Name Dose Route Start Last Admin Trade Name Freq PRN Reason Stop Dose Admin Acetaminophen 1,000 mg 09/13/19 18:25 09/13/19 18:30 Tylenol Extra Strength PO 09/13/19 18:26 1,000 mg ONETIME ONE Administration Tramadol HCl 100 mg 09/13/19 18:18 09/13/19 18:30 Ultram PO 09/13/19 18:19 100 mg ONETIME ONE Administration Departure - Departure Time of Disposition: 19:00 Disposition: Home, Self-Care 01 Condition: Good Clinical Impression: Adnexal pain, Mittelschmerz - Discharge Information Prescriptions: traMADol [Ultram] 100 mg PO Q8H PRN #15 tab PRN Reason: Pain Instructions: Pelvic Pain, Female, [id number] Referrals: PCP,None [Primary Care Provider] - Forms: ED Department Discharge Additional Instructions: please read discharge instructions on pelvic pain tramadol 100 mg with tylenol 1000 mg every 8 hours as needed for pain we will call you about the result of your ultrasound once we get it Sepsis Event Note - Focused Exam Date Exam was Performed: 09/14/19 Time Exam was Performed: 11:19
--- NOTE | 2019-09-14 09:56 | US ---
INDICATION: Left lower quadrant pain. History of ruptured cysts, post hysterectomy 2018 due to CA. ULTRASOUND NON-OB OF THE PELVIS LIMITED: INDICATION: Left lower quadrant pain. History of ruptured cysts, post hysterectomy 2018 due to CA/need better visualization than was possible with the transabdominal probe apparently due to bowel gas. TRANSVAGINAL NON-OB ULTRASOUND: Utilizing transabdominal probe initially and then transvaginal probe for better visualization view of the ovaries due to intestinal gas, multiple ultrasonic images were obtained with 2-D real-time and color flow imaging. Urinary bladder wall appeared slightly thickened which could be on the basis of cystitis, but should be correlated clinically. The ovaries were not visualized despite use of transvaginal probe, apparently due to a large amount of intestinal gas in that area. There is noted a moderate amount of free fluid in the area of the posterior cul- de-sac with the uterus absent compatible with hysterectomy. The fluid is of indeterminate etiology and could be on the basis of rupture of a large physiologic ovarian cyst, although other etiology such as pelvic inflammatory disease, etc. cannot be excluded. No adnexal masses were demonstrated. IMPRESSION: 1. Moderate amount of free fluid in the pelvis, etiology indeterminate, could be on the basis of ruptured physiologic ovarian cyst - correlate clinically - followup study in 2 weeks may be helpful. 2. Post hysterectomy. 3. Ovaries not visualized due to a large amount of intestinal gas. 4. Urinary bladder wall appears to be slightly thickened of questionable significance but could be related to cystitis - correlate clinically. MTDD
== END 2019-09-13 19:16 | disposition home or self-care (01) ==
LOC: FB.ED 17:37
DX: N94.0 Mittelschmerz (principal); R10.2 Pelvic and perineal pain; E10.10 Type 1 diabetes mellitus with ketoacidosis without coma; I10 Essential (primary) hypertension; Z88.8 Allergy status to other drugs, medicaments and biological substances; Z88.0 Allergy status to penicillin; Z88.2 Allergy status to sulfonamides; Z88.1 Allergy status to other antibiotic agents; Z91.040 Latex allergy status; Z79.4 Long term (current) use of insulin
CPT/HCPCS: 76817; 76857; 99284; A9270; 99283

== ENCOUNTER 2019-11-03 20:45 | Emergency (ER) | payer MEDICARE, MEDICAID ==
[2019-11-03] MEDS ORDERED: predniSONE 10 MG Tab PO STA (21:28)
[2019-11-03] MEDS ORDERED: cefTRIAXone 1 GM Vial IM ONE (21:29)
--- NOTE | 2019-11-03 21:53 | EDM.PDOC ---
ED HPI GENERAL MEDICAL PROBLEM - General Chief Complaint: Wound Recheck Stated Complaint: feeding tube in pain Time Seen by Provider: 11/03/19 21:15 Source of Information: Reports: Patient History Limitations: Reports: No Limitations - History of Present Illness INITIAL COMMENTS - FREE TEXT/NARRATIVE: had G tube placed 2 weeks ago for gastroparesis states she had been doing well till last 2-3 days had noted pain around the site of the tube, under neath the skin, has also noted pus discharge around the wound site states she has been vomiting also ( normal for her) has had good BM since she is on the tube feeds denies any fever or chills Onset: Gradual Onset Date: 11/01/19 Duration: Day(s): (2), Getting Worse Location: Reports: Abdomen Quality: Reports: Ache, Dull Severity: Moderate Improves with: Reports: None Worsens with: Reports: None Context: Reports: Activity Associated Symptoms: Reports: Malaise, Nausea/Vomiting - Related Data Allergies Allergy/AdvReac Type Severity Reaction Status Date / Time amoxicillin Allergy Difficulty Verified 06/04/19 22:39 Breathing azithromycin Allergy Rash Verified 06/04/19 22:39 fentanyl Allergy Hives Verified 06/04/19 22:39 ketorolac [From Toradol] Allergy Hives Verified 06/04/19 22:39 latex Allergy Rash Verified 06/04/19 22:39 metoclopramide [From Reglan] Allergy Hives Verified 06/04/19 22:39 Penicillins Allergy Difficulty Verified 06/04/19 22:39 Breathing Sulfa (Sulfonamide Allergy Hives Verified 06/04/19 22:39 Antibiotics) vancomycin Allergy Other Verified 06/04/19 22:39 Home Meds: Home Meds Insulin Aspart [NovoLOG] 5 dose SQ ASDIRECTED 12/16/18 [History] Insulin Glarg,Human.Rec.Analog [Lantus Solostar] 15 dose SQ BEDTIME 12/16/18 [ History] atenoloL [Atenolol] 25 mg PO DAILY 01/19/19 [History] Ciprofloxacin HCl [Cipro] 500 mg PO DAILY 06/04/19 [History] cephALEXin [Keflex] 500 mg PO TID 10 Days #30 capsule 06/04/19 [Rx] traMADol [Ultram] 100 mg PO Q8H PRN #15 tab 09/13/19 [Rx] cephALEXin [Keflex] 500 mg PO TID #15 cap 11/03/19 [Rx] Past Medical History HEENT History: Reports: None Other HEENT History: legally blind L eye Cardiovascular History: Reports: Blood Clots/VTE/DVT, Heart Murmur, Hypertension Gastrointestinal 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 (See Below) Other Gastrointestinal History: gastroparesis Genitourinary History: Reports: Dialysis, Peritoneal Other Genitourinary History: Does peritoneal dialysis daily. 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 PRESS WORKER HELPER History: Musculoskeletal History: Reports: Fracture Other Musculoskeletal History: hx fx L forearm Neurological History: Reports: Migraines Endocrine/Metabolic History: Reports: Diabetes, Type I Oncologic (Cancer) History: Reports: Uterine, Other (See Below) Other Oncologic History: oral CA, teeth removed - Past Surgical History HEENT Surgical History: Reports: Myringotomy w Tube(s), Oral Surgery GI Surgical History: Reports: Appendectomy, Cholecystectomy, EGD Female Surgical History: Reports: Section, Hysterectomy Musculoskeletal Surgical History: Reports: ORIF Social & Family History - Family History Family Medical History: Noncontributory - Caffeine Use Caffeine Use: Reports: None - Living Situation & Occupation Living situation: Reports: , with Spouse Occupation: Unemployed ED ROS GENERAL - Review of Systems Review Of Systems: Comprehensive ROS is negative, except as noted in HPI. GI/Abdominal: Reports: Abdominal Pain, Nausea, Vomiting : Reports: No Symptoms Musculoskeletal: Reports: No Symptoms ED EXAM, SKIN/RASH Exam: See Below Exam Limited By: No Limitations General Appearance: Alert, WD/WN, No Apparent Distress Ears: Normal External Exam Nose: Normal Inspection Throat/Mouth: Normal Oropharynx Head: Normocephalic Neck: Supple, Non-Tender Respiratory/Chest: No Respiratory Distress GI/Abdominal: Soft, Tender (in the epigastrium and around the gastric tube on palpation) Neurological: Alert, Oriented, CN II-XII Intact Psychiatric: Normal Affect, Normal Mood Skin: Erythema (in the epigastrium), Excoriations Location, Skin: Abdomen Characteristics: Erythematous Associated features: Warmth Course - Orders/Labs/Meds Meds: Medications Discontinued Medications Generic Name Dose Route Start Last Admin Trade Name Freq PRN Reason Stop Dose Admin Ceftriaxone Sodium 1 gm 11/03/19 21:29 11/03/19 21:37 Rocephin IM 11/03/19 21:30 1 gm ONETIME ONE Administration Prednisone 40 mg 11/03/19 21:28 11/03/19 21:35 Prednisone PO 11/03/19 21:29 40 mg NOW STA Administration - Re-Assessments/Exams Free Text/Narrative Re-Assessment/Exam: 11/03/19 21:59 remained stable wound dressing change done Given rocephin and prednisone orally Departure - Departure Time of Disposition: 22:00 Disposition: Home, Self-Care 01 Clinical Impression: Cellulitis at gastrostomy tube site - Discharge Information *PRESCRIPTION DRUG MONITORING PROGRAM REVIEWED*: Not Applicable *COPY OF PRESCRIPTION DRUG MONITORING REPORT IN PATIENT RACHAEL: Not Applicable Prescriptions: cephALEXin [Keflex] 500 mg PO TID #15 cap Referrals: PCP,None [Primary Care Provider] - Forms: ED Department Discharge Additional Instructions: 1) Keep area clean and dry 2) change wound dressing daily till new tube is placed 3) Call your emt with any concerns
== END 2019-11-03 22:05 | disposition home or self-care (01) ==
LOC: FB.ED 20:45
DX: K94.22 Gastrostomy infection (principal); L03.311 Cellulitis of abdominal wall; I10 Essential (primary) hypertension; E10.43 Type 1 diabetes mellitus with diabetic autonomic (poly)neuropathy; K31.84 Gastroparesis; Z88.1 Allergy status to other antibiotic agents; Z88.5 Allergy status to narcotic agent; Z91.040 Latex allergy status; Z88.6 Allergy status to analgesic agent; Z88.0 Allergy status to penicillin; Z88.2 Allergy status to sulfonamides
CPT/HCPCS: 96372; 99283; J0696; J7512